=== PATIENT | female | born 1930 | race Caucasian/White ===

== ENCOUNTER 2016-08-16 10:58 | Inpatient (IN) | payer MEDICARE, BC ==
[2016-08-16] MEDS ORDERED: NS 0.9% 1000 ML* 1,000 ML IV ONE (11:28)
[2016-08-16 12:09] LABS: Hematocrit 51 % (35-47); Hemoglobin 16.3 g/dl (12.0-16.0); Mean Corpuscular HGB Conc 32 g/dl (31-36); Mean Corpuscular Hemoglobin 29 pg (27-31); Mean Corpuscular Volume 90 fL (80-97); Mean Platelet Volume 10 um3 (7.4-10.4); Red Blood Count 5.63 10^6/ul (4.0-5.4); Red Cell Distribution Width 14 % (10.5-15); White Blood Count 15.5 10^3/ul (3.5-10.8)
[2016-08-16 12:25] LABS: Albumin 3.8 g/dL (3.2-5.2); BUN/Creatinine Ratio 17.4 (8-20); C Reactive Protein 27.93 mg/L (< 5.00); Calcium 9.1 mg/dL (8.6-10.3); EGFR African American 74.6 (>60); Globulin 3.9 g/dL (2-4); Total Bilirubin 0.7 mg/dL (0.2-1.0); Total Protein 7.7 g/dL (6.4-8.9)
[2016-08-16 12:29] LABS: Potassium 4.1 mmol/L (3.5-5.0)
[2016-08-16] MEDS ORDERED: Ondansetron INJ* 2 MG/ML VIAL IV ONE (14:23)
--- NOTE | 2016-08-16 14:25 | ED ---
Abdominal Pain/Female - HPI Summary HPI Summary: Pt presents to the ED through ambulatory triage. Pt is an 86 yo female with report of baseline confusion, hypertension, and elevated cholesterol. Pt was sent from [place] with diarrhea. Pt with limited ability to assist with hx. Pt denies fevers. Reports nausea, no vomiting. Pt denies rash. Pt denies fevers, chills - pt is inconsistent. Hx in part from RN at bedside who spoke with pt' s son - since left ED No known h/o abx - History of Current Complaint Chief Complaint: EDNauseaVomitDiarrh Stated Complaint: DIARRHEA Time Seen by Provider: 08/16/16 14:14 Hx From Patient Unobtainable Due To: Dementia ?: No Pain Intensity: 0 Radiates: No Alleviating Factor(s): Other: - diarrhea Associated Signs and Symptoms: Positive: Negative Allergies/Adverse Reactions: Allergies Allergy/AdvReac Type Severity Reaction Status Date / Time Iodinated Contrast Media Allergy Unknown Unknown Verified 03/02/16 04:20 [IV CONTRAST DYE] Reaction Details Morphine Allergy Unknown Unknown Verified 03/02/16 04:20 Reaction Details Home Medications: Home Medications Acetaminophen [Acetaminophen Extra Stren] 500 mg PO QID PRN 08/16/16 [History Confirmed 08/16/16] Aspirin EC Low Dose* [Ecotrin EC Low Dose*] 81 mg PO DAILY 08/16/16 [History Confirmed 08/16/16] Donepezil TAB* [Aricept TAB*] 10 mg PO DAILY 08/16/16 [History Confirmed ] Escitalopram (NF) [Lexapro (NF)] 5 mg PO DAILY 08/16/16 [History Confirmed 08/16] LORazepam TAB(*) [Ativan TAB(*)] 0.5 mg PO DAILY MDD 0.5 mg 08/16/16 [History Confirmed 08/16/16] Memantine HCl [Namenda XR-] 21 mg PO QAM 08/16/16 [History Confirmed 08/16/16] Metoprolol Succinate XL TAB* [Toprol XL TAB*] 50 mg PO DAILY 08/16/16 [History Confirmed 08/16/16] Vitamin B Complex CAP* [B Complex CAP*] 1 cap PO DAILY 08/16/16 [History Confirmed 08/16/16] traZODone TAB* [Desyrel TAB*] 50 mg PO BEDTIME 08/16/16 [History Confirmed 08/16] PMH/Surg Hx/FS Hx/Imm Hx Previously Healthy: Yes Cardiovascular History: Reports: Hx Coronary Artery Disease, Hx Hypercholesterolemia Neurological History: Reports: Hx Dementia Psychiatric History: Denies: Hx Eating Disorder, Hx of Violent Episodes Against Others - Cancer History Cancer Type, Location and Year: 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 2004 BOWEL RESECTION - Immunization History Date of Tetanus Vaccine: unk Date of Influenza Vaccine: unk Infectious Disease History: No Infectious Disease History: Denies: Traveled Outside the [place] in Last 30 Days - Family History Known Family History: Positive: Hypertension - Social History Alcohol Use: None Hx Substance Use: No Substance Use Type: Reports: None Hx Tobacco Use: No Smoking Status (MU): Never Smoked Tobacco Review of Systems Constitutional: Negative Eyes: Negative ENT: Negative Cardiovascular: Negative Negative: Chest Pain Respiratory: Negative Negative: Shortness Of Breath Gastrointestinal: Negative Positive: Abdominal Pain, Diarrhea, Nausea. Negative: Vomiting Genitourinary: Negative Skin: Negative Neurological: Negative Psychological: Normal All Other Systems Reviewed And Are Negative: Yes Physical Exam Triage Information Reviewed: Yes Vital Signs On Initial Exam: Initial Vitals Temp Pulse Resp BP Pulse Ox 97.8 F 95 16 131/83 98 08/16/16 11:19 08/16/16 11:19 08/16/16 11:19 08/16/16 11:19 08/16/16 11:19 Vital Signs Reviewed: Yes Completion Of Physical Exam Limited Due To: Dementia Appearance: Positive: Well-Appearing, No Pain Distress Skin: Positive: Warm, Skin Color Reflects Adequate Perfusion, Dry Head/Face: Positive: Normal Head/Face Inspection Eyes: Positive: Normal, EOMI, ARTIE ENT: Positive: Other - lips dry. Negative: Nasal congestion, TMs normal Respiratory/Lung Sounds: Positive: Clear to Auscultation, Breath Sounds Present Cardiovascular: Positive: Normal, RRR. Negative: Murmur Abdomen Description: Negative: Nontender - + TTP lower quadrants b/l No guarding + BS Bowel Sounds: Positive: Hypoactive Musculoskeletal: Positive: Normal Neurological: Negative: Alert, Oriented to Person Place, Time, Receptive Aphasia , Facial Droop, Slurred Speech - Pt with confusion - baseline per RN per pt's son Psychiatric: Positive: Normal AVPU Assessment: Alert - Oral Coma Scale Best Eye Response: 4 - Spontaneous Best Motor Response: 6 - Obeys Commands Best Verbal Response: 5 - Oriented Coma Scale Total: 14 Diagnostics - Vital Signs Vital Signs Temp Pulse Resp BP Pulse Ox 08/16/16 13:42 65 16 141/59 95 08/16/16 11:19 97.8 F 95 16 131/83 98 - Laboratory Lab Results: Lab Results 08/16/16 08/16/16 08/16/16 Range/Units 11:57 11:57 11:57 WBC 15.5 H (3.5-10.8) 10^3/ul RBC 5.63 H (4.0-5.4) 10^6/ul Hgb 16.3 H (12.0-16.0) g/dl Hct 51 H (35-47) % MCV 90 (80-97) fL MCH 29 (27-31) pg MCHC 32 (31-36) g/dl RDW 14 (10.5-15) % Plt Count 202 (150-450) 10^3/ul MPV 10 (7.4-10.4) um3 Neut % (Auto) 93.7 H (38-83) % Lymph % (Auto) 3.1 L (25-47) % [place] % (Auto) 3.0 (1-9) % Eos % (Auto) 0.1 (0-6) % Baso % (Auto) 0.1 (0-2) % Absolute Neuts (auto) 14.5 H (1.5-7.7) 10^3/ul Absolute Lymphs (auto) 0.5 L (1.0-4.8) 10^3/ul Absolute Monos (auto) 0.5 (0-0.8) 10^3/ul Absolute Eos (auto) 0 (0-0.6) 10^3/ul Absolute Basos (auto) 0 (0-0.2) 10^3/ul Absolute Nucleated RBC 0 10^3/ul Nucleated RBC % 0 INR (Anticoag Therapy) 1.01 (0.89-1.11) APTT 33.0 (26.0-36.3) seconds Sodium 138 (133-145) mmol/L Potassium 4.1 (3.5-5.0) mmol/L Chloride 105 (101-111) mmol/L Carbon Dioxide 26 (22-32) mmol/L Anion Gap 7 (2-11) mmol/L BUN 16 (6-24) mg/dL Creatinine 0.92 (0.51-0.95) mg/dL Est GFR ( Amer) 74.6 (>60) Est GFR (Non-Af Amer) 58.0 (>60) BUN/Creatinine Ratio 17.4 (8-20) Glucose 123 H (70-100) mg/dL Lactic Acid (0.5-2.0) mmol/L Calcium 9.1 (8.6-10.3) mg/dL Total Bilirubin 0.70 (0.2-1.0) mg/dL AST 22 (13-39) U/L ALT 20 (7-52) U/L Alkaline Phosphatase 95 (34-104) U/L C-Reactive Protein 27.93 H (< 5.00) mg/L Total Protein 7.7 (6.4-8.9) g/dL Albumin 3.8 (3.2-5.2) g/dL Globulin 3.9 (2-4) g/dL Albumin/Globulin Ratio 1.0 (1-3) Lipase 25 (11.0-82.0) U/L 08/16/16 Range/Units 11:57 WBC (3.5-10.8) 10^3/ul RBC (4.0-5.4) 10^6/ul Hgb (12.0-16.0) g/dl Hct (35-47) % MCV (80-97) fL MCH (27-31) pg MCHC (31-36) g/dl RDW (10.5-15) % Plt Count (150-450) 10^3/ul MPV (7.4-10.4) um3 Neut % (Auto) (38-83) % Lymph % (Auto) (25-47) % [place] % (Auto) (1-9) % Eos % (Auto) (0-6) % Baso % (Auto) (0-2) % Absolute Neuts (auto) (1.5-7.7) 10^3/ul Absolute Lymphs (auto) (1.0-4.8) 10^3/ul Absolute Monos (auto) (0-0.8) 10^3/ul Absolute Eos (auto) (0-0.6) 10^3/ul Absolute Basos (auto) (0-0.2) 10^3/ul Absolute Nucleated RBC 10^3/ul Nucleated RBC % INR (Anticoag Therapy) (0.89-1.11) APTT (26.0-36.3) seconds Sodium (133-145) mmol/L Potassium (3.5-5.0) mmol/L Chloride (101-111) mmol/L Carbon Dioxide (22-32) mmol/L Anion Gap (2-11) mmol/L BUN (6-24) mg/dL Creatinine (0.51-0.95) mg/dL Est GFR ( Amer) (>60) Est GFR (Non-Af Amer) (>60) BUN/Creatinine Ratio (8-20) Glucose (70-100) mg/dL Lactic Acid 1.5 (0.5-2.0) mmol/L Calcium (8.6-10.3) mg/dL Total Bilirubin (0.2-1.0) mg/dL AST (13-39) U/L ALT (7-52) U/L Alkaline Phosphatase (34-104) U/L C-Reactive Protein (< 5.00) mg/L Total Protein (6.4-8.9) g/dL Albumin (3.2-5.2) g/dL Globulin (2-4) g/dL Albumin/Globulin Ratio (1-3) Lipase (11.0-82.0) U/L Result Diagrams: 08/16/16 11:57 08/16/16 11:57 Lab Statement: Any lab studies that have been ordered have been reviewed, and results considered in the medical decision making process. - CT No standard instances CT Interpretation: Positive (See Comments) - IMPRESSION: 1. LARGE ANTERIOR ABDOMINAL WALL HERNIA CONTAINING THE MAJORITY OF THE TRANSVERSE COLON WITHOUT EVIDENCE FOR OBSTRUCTION. 2. 1 CM NODULE WITHIN THE RIGHT BREAST, RECOMMEND FOLLOW-UP OUTPATIENT MAMMOGRAMS. 3. HEPATOMEGALY AND SEVERAL HEPATIC CYSTS, UNCHANGED. 4. STATUS POST CHOLECYSTECTOMY. 5. 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 <Electronically signed by Kris Cervantes MD in OV> 08/16/16 1727 Re-Evaluation - Re-Evaluation First Eval Re-Evaluation Time: 16:45 Change: Improved - drinking contrast, no pain Second Eval Re-Evaluation Time: 18:02 Comment: REviewed cT and labs with pt and daughter. Pt has had 5 BM in ED - loose. will d/c hospitalist regarding admission / obv Abdominal Pain Fem Course/Dx - Course Course Of Treatment: Pt presents with report of diarrhea - pt noted to have abdominal discomfort on exam. Pt with elevated wbc. Will check CT. straight cath urine. If abx, will draw blood cx. RN updated to plan - Diagnoses Provider Diagnoses: Diarrhea, Leukocytosis - Provider Notifications Discussed Care Of Patient With: Dr. Cisse - will admit OBV Time Discussed With Above Provider: 18:00 Instructed by Provider To: Admit As Observation Discharge - Discharge Plan Condition: Stable Disposition: ADMITTED TO [facility]
[2016-08-16 15:25] LABS: Urine Bilirubin Negative (Negative); Urine Glucose Negative (Negative); Urine Nitrite Negative (Negative)
--- NOTE | 2016-08-16 17:30 | RAD ---
INDICATION: Diarrhea and bilateral lower abdominal pain. COMPARISON: Comparison is made with a prior CT of the abdomen from December 30, 2004. TECHNIQUE: A CT scan of the abdomen and pelvis was performed without intravenous and with oral contrast. Contiguous axial sections were obtained from the lung bases through the symphysis pubis. Images were reconstructed in the coronal and sagittal planes. FINDINGS: There is mild dependent bilateral lower lobe subsegmental atelectasis. No pleural effusion is present. There is a nodule in the medial right breast measuring 1 cm in size. The liver is moderately enlarged and unchanged from the prior exam. There are several small fluid density lesions. The largest measures 1.6 cm in size present within the liver. These have increased slightly in size from the prior study and are most consistent with cysts. The patient is status post cholecystectomy. The spleen is within normal limits in size. The pancreas appears to be within normal limits in size. No ductal distention is seen. There is a 2.9 x 1.4 cm left adrenal nodule which has increased in size from the prior exam although likely represents an adenoma. The right adrenal gland appears to be within normal limits. The kidneys are normal in size. No renal calculi or hydronephrosis is seen. The aorta is mildly ectatic with moderate to severe calcific plaque present. No significant enlarged retroperitoneal lymph nodes are seen. The stomach, small and large bowel appear nondistended. The appendix is not visualized. There is a suture line present along the cecum. There is a large anterior wall abdominal hernia centered just to the right of the midline containing the majority of the transverse colon and a portion of the ascending colon. The colon appears nondistended without evidence for bowel wall thickening. This is new from the prior study. There is no evidence for diverticulitis or colitis. The uterus is either very small in size or absent. No free intraperitoneal air or fluid is seen. No significant focal osseous abnormality is seen. IMPRESSION: 1. LARGE ANTERIOR ABDOMINAL WALL HERNIA CONTAINING THE MAJORITY OF THE TRANSVERSE COLON WITHOUT EVIDENCE FOR OBSTRUCTION. 2. 1 CM NODULE WITHIN THE RIGHT BREAST, RECOMMEND FOLLOW-UP OUTPATIENT MAMMOGRAMS. 3. HEPATOMEGALY AND SEVERAL HEPATIC CYSTS, UNCHANGED. 4. STATUS POST CHOLECYSTECTOMY. 5. 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
[2016-08-16] MEDS ORDERED: Acetaminophen TAB* 325 MG PO PRN (18:52)
[2016-08-16] MEDS ORDERED: Ondansetron INJ* 2 MG/ML VIAL IV PRN (18:52)
[2016-08-16] MEDS: traZODone TAB* 50 MG TAB PO SCH (20:37)
[2016-08-16] MEDS: Enoxaparin(*) 40 MG/0.4 ML SYR SUBCUT SCH (20:39)
--- NOTE | 2016-08-17 00:34 | HP ---
MEDICINE HISTORY AND PHYSICAL: DATE OF ADMISSION: 08/16/16 ATTENDING PHYSICIAN: Gerald Cisse MD *(dictated by Axel Fierro NP) PRIMARY CARE PHYSICIAN: Lorin Perkins MD. CHIEF COMPLAINT: Nausea, vomiting and diarrhea. HISTORY OF PRESENT ILLNESS: Ms. Rossy Brody is a pleasant 86-year-old female who resides at [facility], who presented to the ED today for evaluation of nausea, vomiting, and diarrhea that started in the middle of the night as per the [facility] staff. The patient has a history of dementia and memory loss, so she is unable to provide much of the history. Her daughter, Jeannine Brody, is in the room and she assisted in providing collateral information. Per the daughter from report from [facility], the patient started with diarrhea at middle of the night, there are other residents who have had similar symptoms and it was reported that there is a stomach bug going around the facility. The patient has had frequent loose stools while here in the ED and a stool sample has been sent for testing. Since 3 o'clock, the daughter reports that the patient still had frequent loose stools, although she has denied nausea after receiving Zofran. When asked, the patient denies any recent fever or chills and she states that her abdomen does not hurt. She denies any chest pain or trouble breathing or dysuria. PAST MEDICAL HISTORY: Significant for: 1. Hypertension. 2. Dyslipidemia. 3. Dementia. 4. History of uterine cancer, status post chemo. 5. Hiatal hernia. 6. Diverticulitis. PAST SURGICAL HISTORY: 1. Cholecystectomy. 2. Laparotomy with resection of the rectosigmoid and placement of a transverse colostomy in 2004. The patient had a reversal of the colostomy in 2005. 3. Total abdominal hysterectomy and bilateral salpingo-oophorectomy in 1999 for stage I uterine cancer. 4. History of bladder inflammation with a colovaginal fistula. Please note that these histories were obtained from previous medical records and the patient's daughter. HOME MEDICATIONS: 1. Trazodone 50 mg at bedtime. 2. Vitamin B complex 1 capsule daily. 3. Metoprolol succinate XL 50 mg daily. 4. Memantine XR 21 mg q.a.m. 5. Lorazepam 0.5 mg daily. 6. Lexapro 5 mg daily. 7. Omeprazole 10 mg daily. 8. Aspirin 81 mg daily. 9. Ascorbic acid 500 mg daily. 10. Acetaminophen Extra Strength 500 mg q.i.d. p.r.n. ALLERGIES: IODINATED CONTRAST MEDIA and MORPHINE. FAMILY HISTORY: The patient's daughter reports heart disease in multiple family members on her mother's side. SOCIAL HISTORY: The patient is a former smoker, quitting approximately 50 years ago and then restarting around age 71, she has since quit. She denies alcohol or recreational drug use. The patient lives at [facility] in the assisted living section. She has 3 children, 2 daughters and 1 son, her children Jeannine Brody and Vance Brody, are each surrogate decision makers in the event of an emergency. REVIEW OF SYSTEMS: I attempted to obtain a 14-point review of systems, the patient has short-term memory loss and dementia and is unable to provide a full review of systems. All pertinent positives were included in the HPI. PHYSICAL EXAMINATION GENERAL: Ms. Brody is an 86-year-old female, well developed, well nourished, who is lying in the ED stretcher, in no acute distress. VITAL SIGNS: Temperature 98.1, heart rate 76, respiratory rate 18, blood pressure 124/60, O2 saturation 94% on room air. HEENT: Head is atraumatic, normocephalic. Face is symmetrical. Pupils are equal, round and reactive to light. Extraocular movements are intact. External ears and nose are normal. Oral mucosa appears somewhat dry. NECK: Supple. No lymphadenopathy noted. RESPIRATORY: Lungs are clear to auscultation. There is no accessory muscle use. CARDIAC: S1, S2 heart sounds. Regular rate and rhythm. No murmurs, rubs, or gallops. There is no lower extremity edema. The patient has 2+ distal pulses. ABDOMEN: Soft, nontender, nondistended. There is no rebound, tenderness or guarding. Bowel sounds are present in all 4 quadrants. MUSCULOSKELETAL: There is no clubbing or cyanosis. The patient has full range of motion. SKIN: Limited exam, but appears grossly intact. NEUROLOGIC: No focal neurological deficits. The patient is able to move all extremities. PSYCH: She is alert. She is oriented to self. She has some confusion which is apparently her baseline per her daughter. LABORATORY DATA AND DIAGNOSTIC STUDIES: CBC: WBC 15.5, hemoglobin 16.3, hematocrit 51. INR 1.01. CMP: Sodium 138, potassium 4.1, chloride 105, carbon dioxide 26, BUN 16, creatinine 0.92, glucose 123. Lactic acid 1.5, calcium 9.1, total bilirubin 0.7, AST 22, ALT 20, alk phos 95, CRP 27.9, prealbumin 3.8, lipase 25. Urinalysis is negative. CT of the abdomen and pelvis. Impression: 1. Large anterior abdominal wall hernia containing the majority of the transverse colon without evidence for obstruction. 2. A 1 cm nodule within the right breast, recommend followup outpatient mammograms. 3. Hepatomegaly and several hepatic cysts, unchanged. 4. Status post cholecystectomy. 5. Left adrenal nodule most consistent with an adenoma. ASSESSMENT AND PLAN: Ms. Brody is an 86-year-old female with a past medical history of hypertension, hiatal hernia, previous abdominal surgery who presents today with nausea, vomiting and diarrhea that is likely secondary to gastroenteritis. We will admit her under OBV status to medicine floor. Plan is as follows: 1. Nausea, vomiting, diarrhea, suspect viral gastroenteritis. Admitted to Medicine under OBV status. We will hydrate the patient with Lactated Ringer's. Stool cultures and fecal lactoferrin was collected and sent into the ER and we will await these results. The patient's PCR for C. diff is negative. Her stool occult is also negative. She denies abdominal pain. At this time, we will maintain her on clear liquids. Recheck CBC and BMP in the morning to monitor electrolytes and leukocytosis. 2. Leukocytosis. I suspect this is secondary to the patient's gastroenteritis. Continue to trend. She does have a mildly elevated CRP at 27. 3. Hypertension. Continue metoprolol succinate XL with hold parameters. 4. History of dementia. Continue home Namenda, Aricept. 5. FEN. The patient is ordered clear liquids and IV fluids. 6. DVT prophylaxis. She is at high risk. She is ordered subcu Lovenox and SCD 's. 7. Code status. She is a full code. a MOLST form but this was discussed. TIME SPENT: Time spent on this admission was approximately 60 minutes, more than half that time was spent [id number] with the patient and her family obtaining history and physical, performing physical examination, and reviewing the plan of care. Plan of care was also reviewed with my attending, Dr. Cisse , who is in agreement. AXEL FIERRO NP CC: Lorin Perkins MD* [id number]/[facility] #: [id number] MTDD
[2016-08-17 05:33] LABS: Hematocrit 44 % (35-47); Hemoglobin 14.2 g/dl (12.0-16.0); Mean Corpuscular HGB Conc 33 g/dl (31-36); Mean Corpuscular Hemoglobin 30 pg (27-31); Mean Corpuscular Volume 90 fL (80-97); Mean Platelet Volume 10 um3 (7.4-10.4); Red Blood Count 4.82 10^6/ul (4.0-5.4); Red Cell Distribution Width 14 % (10.5-15); White Blood Count 7.8 10^3/ul (3.5-10.8)
[2016-08-17 05:46] LABS: BUN/Creatinine Ratio 13.8 (8-20); Calcium 8.4 mg/dL (8.6-10.3); EGFR African American 79.6 (>60); EGFR Non-African American 61.9 (>60); Potassium 3.6 mmol/L (3.5-5.0)
[2016-08-17] MEDS: Donepezil TAB* 5 MG PO SCH ×2 (10:22→10:30)
[2016-08-17] MEDS: Aspirin EC Low Dose* 81 MG TAB.EC PO SCH ×2 (10:23→10:30)
[2016-08-17] MEDS: Memantine XR * 7 MG CAP.XR PO SCH ×2 (10:23→10:30)
[2016-08-17] MEDS: LORazepam TAB(*) 0.5 MG PO SCH ×2 (10:23→10:30)
[2016-08-17] MEDS: Citalopram TAB* 10 MG PO SCH ×2 (10:23→10:30)
[2016-08-17] MEDS: Metoprolol Succinate XL TAB* 50 MG PO SCH (10:23)
--- NOTE | 2016-08-17 13:07 | PN ---
Subjective Date of Service: 08/17/16 Interval History: Patient seen and examined at bedside. Pt states that she didn't sleep well, and she doesn't want to take her medications. Denies fever, chills, shortness of breath, chest discomfort, vomiting or diarrhea. [facility] staff report that Pt had an episode of diarrhea earlier today. Pt continues to have nausea. Pt doesn't want to eat, she is "ready to ". Pt denies suicidal ideation, states that she has lived long enough. Family History: Unchanged from Admission Social History: Unchanged from Admission Past Medical History: Unchanged from Admission Objective Active Medications: Acetaminophen (Tylenol Tab*) 650 mg PO Q4H PRN Reason: FEVER/PAIN Aspirin (Aspirin Ec Low Dose*) 81 mg PO DAILY BRIGIDO Citalopram Hydrobromide (Celexa Tab*) 10 mg PO DAILY BR[facility]O Donepezil HCl (Aricept Tab*) 10 mg PO DAILY [facility]O Enoxaparin Sodium (Lovenox(*)) 40 mg SUBCUT Q24H BRIGIDO Lorazepam (Ativan Tab(*)) 0.5 mg PO DAILY [facility]O Memantine (Namenda Xr *) 21 mg PO QAM [facility] Metoprolol Succinate (Toprol Xl Tab*) 50 mg PO DAILY [facility]O Ondansetron HCl (Zofran Inj*) 4 mg IV Q6H PRN Reason: NAUSEA Trazodone HCl (Desyrel Tab*) 50 mg PO BEDTIME [facility] Vital Signs 08/16/16 08/16/16 08/16/16 19:19 19:20 20:15 Temperature 99.3 F Pulse Rate 73 74 Respiratory 18 Rate Blood Pressure 141/75 126/75 (mmHg) O2 Sat by Pulse 94 94 Oximetry 08/16/16 08/16/16 08/17/16 23:13 23:40 06:10 Temperature 98.0 F 98.1 F Pulse Rate 87 82 Respiratory 18 16 16 Rate Blood Pressure 147/63 138/62 (mmHg) O2 Sat by Pulse 93 92 Oximetry Oxygen Devices in Use Now: None Appearance: NAD, laying in bed. Eyes: No Scleral Icterus, PERRLA Neck: NL Appearance and Movements; NL JVP, Trachea Midline Respiratory: Symmetrical Chest Expansion and Respiratory Effort, Clear to Auscultation Cardiovascular: NL Sounds; No Murmurs; No JVD, RRR Abdominal: NL Sounds; No Tenderness; No Distention - Bowel sounds present Extremities: No Edema Skin: No Rash or Ulcers Neurological: NL Muscle Strength and Tone, - - Oriented to Person Lines/Tubes/Other Access: Clean, Dry and Intact Peripheral IV - site benign Nutrition: Taking PO's Result Diagrams: 08/17/16 04:59 08/17/16 04:59 Additional Lab and Data: Assess/Plan/Problems-Billing Assessment: Ms. Brody is an 86 yo female with PMH significant for HTN, hiatal hernia, previous abdominal surgery who presented to the emergency room with N/V/D secondary to gastroenteritis. - Patient Problems (1) Nausea, vomiting, and diarrhea Code(s): R11.2 - NAUSEA WITH VOMITING, UNSPECIFIED; R19.7 - DIARRHEA, UNSPECIFIED SNOMED Code(s): 6456907 Comment: - Continues to have nausea and some diarrhea - Continue to encourage liquids - Suspect viral gastroenteritis (2) Leukocytosis Code(s): D72.829 - ELEVATED WHITE BLOOD CELL COUNT, UNSPECIFIED SNOMED Code(s) : 182700802 Comment: - Resolved - Suspect related to gastroenteritis (3) HTN (hypertension) Code(s): I10 - ESSENTIAL (PRIMARY) HYPERTENSION SNOMED Code(s): 27395839 Comment: - SBP 120-140's - Continue Metoprolol Succinate (4) Dementia Code(s): F03.90 - UNSPECIFIED DEMENTIA WITHOUT BEHAVIORAL DISTURBANCE SNOMED Code(s): 18116147 Comment: Continue Namenda and Aricept (5) DVT prophylaxis Code(s): MDP4435 - SNOMED Code(s): 820164053 Comment: Continue Lovenox and SCDs (6) Full code status Code(s): Z78.9 - OTHER SPECIFIED HEALTH STATUS SNOMED Code(s): 091060018 Status and Disposition: OBV to Inpatient. Discharge back to [facility] when medically stable.
[2016-08-17] MEDS: traZODone TAB* 50 MG TAB PO SCH (20:12)
[2016-08-17] MEDS: Enoxaparin(*) 40 MG/0.4 ML SYR SUBCUT SCH (20:13)
[2016-08-18] MEDS: LORazepam TAB(*) 0.5 MG PO SCH (08:08)
--- NOTE | 2016-08-18 10:15 | PN ---
Subjective Date of Service: 08/18/16 Interval History: Patient seen and examined at bedside. Pt states that she wants to go home. Denies fever, chills, shortness of breath, chest discomfort, N/V/D. Per NSG staff Pt has not had a bowel movement today. Pt is anxious about going home, "needs to get home to the children". Family History: Unchanged from Admission Social History: Unchanged from Admission Past Medical History: Unchanged from Admission Objective Active Medications: Acetaminophen (Tylenol Tab*) 650 mg PO Q4H PRN Reason: FEVER/PAIN Aspirin (Aspirin Ec Low Dose*) 81 mg PO DAILY BRIGIDO Citalopram Hydrobromide (Celexa Tab*) 10 mg PO DAILY BRIGIDO Donepezil HCl (Aricept Tab*) 10 mg PO DAILY BRIGIDO Enoxaparin Sodium (Lovenox(*)) 40 mg SUBCUT Q24H BRIGIDO Lactated Ringer's (Lactated Ringers 1000 Ml Bag*) 1,000 mls @ 75 mls/hr IV PER RATE BRIGIDO Lorazepam (Ativan Tab(*)) 0.5 mg PO DAILY BRIGIDO Memantine (Namenda Xr *) 21 mg PO QAM BRIGIDO Metoprolol Succinate (Toprol Xl Tab*) 50 mg PO DAILY BRIGIDO Ondansetron HCl (Zofran Inj*) 4 mg IV Q6H PRN Reason: NAUSEA Trazodone HCl (Desyrel Tab*) 50 mg PO BEDTIME BRIGIDO Vital Signs 08/17/16 08/17/16 08/18/16 20:00 23:36 08:08 Temperature 97.1 F Pulse Rate 89 Respiratory 16 20 16 Rate Blood Pressure 124/84 (mmHg) O2 Sat by Pulse 96 Oximetry Oxygen Devices in Use Now: None Appearance: NAD, sitting up in a chair. Eyes: No Scleral Icterus, PERRLA Ears/Nose/Mouth/Throat: NL Teeth, Lips, Gums, Mucous Membranes Moist Neck: NL Appearance and Movements; NL JVP, Trachea Midline Respiratory: Symmetrical Chest Expansion and Respiratory Effort, Clear to Auscultation Cardiovascular: NL Sounds; No Murmurs; No JVD, RRR Abdominal: NL Sounds; No Tenderness; No Distention Extremities: No Edema Skin: No Rash or Ulcers Neurological: NL Muscle Strength and Tone, - - Alert and Oriented to Person and Place, confused Nutrition: Taking PO's Result Diagrams: 08/17/16 04:59 08/17/16 04:59 Additional Lab and Data: Assess/Plan/Problems-Billing Assessment: Ms. Brody is an 86 yo female with PMH significant for HTN, hiatal hernia, previous abdominal surgery who presented to the emergency room with N/V/D secondary to gastroenteritis. - Patient Problems (1) Nausea, vomiting, and diarrhea Code(s): R11.2 - NAUSEA WITH VOMITING, UNSPECIFIED; R19.7 - DIARRHEA, UNSPECIFIED SNOMED Code(s): 0105028 Comment: - Nausea and diarrhea resolved - Continue to encourage liquids - Suspect viral gastroenteritis (2) Leukocytosis Code(s): D72.829 - ELEVATED WHITE BLOOD CELL COUNT, UNSPECIFIED SNOMED Code(s) : 917378929 Comment: - Resolved - Suspect related to gastroenteritis (3) HTN (hypertension) Code(s): I10 - ESSENTIAL (PRIMARY) HYPERTENSION SNOMED Code(s): 93369061 Comment: - SBP 120-140's - Continue Metoprolol Succinate (4) Dementia Code(s): F03.90 - UNSPECIFIED DEMENTIA WITHOUT BEHAVIORAL DISTURBANCE SNOMED Code(s): 86985761 Comment: Continue Namenda and Aricept (5) DVT prophylaxis Code(s): VHW5611 - SNOMED Code(s): 758163217 (6) Full code status Code(s): Z78.9 - OTHER SPECIFIED HEALTH STATUS SNOMED Code(s): 689343835 Status and Disposition: Inpatient. Stable for discharge back to [facility] today.
[2016-08-18 11:21] VITALS: BP 165/76
[2016-08-18] MEDS: Donepezil TAB* 5 MG PO SCH (11:28)
[2016-08-18] MEDS: Metoprolol Succinate XL TAB* 50 MG PO SCH (11:28)
[2016-08-18] MEDS: Aspirin EC Low Dose* 81 MG TAB.EC PO SCH (11:29)
[2016-08-18] MEDS: Citalopram TAB* 10 MG PO SCH (11:29)
[2016-08-18] MEDS: Memantine XR * 7 MG CAP.XR PO SCH (11:29)
--- NOTE | 2016-08-19 11:49 | DS ---
DISCHARGE SUMMARY: DATE OF ADMISSION: 08/16/16 DATE OF DISCHARGE: 08/18/16 ATTENDING PHYSICIAN: Dr. Gerald Cisse *(dictated by Lucila Sun NP). PRIMARY CARE PROVIDER: Dr. Lorin Perkins. PRIMARY DIAGNOSIS: Viral gastroenteritis. SECONDARY DIAGNOSES: 1. Hypertension. 2. Dementia. STUDIES WHILE IN THE HOSPITAL: Abdomen and pelvis CT on 08/16/16. Radiologist' s impression: Large anterior abdominal wall hernia containing the majority of the transverse colon without evidence of obstruction. A 1 cm nodule within the right breast, recommend followup outpatient mammograms. Hepatomegaly and several hepatic cysts, unchanged. Status post cholecystectomy. Left adrenal nodule, most consistent with an adenoma. DISCHARGE MEDICATIONS: Continued home medications: 1. Vitamin C 500 mg oral daily. 2. Trazodone 50 mg oral daily at bedtime. 3. Vitamin B complex one capsule oral daily. 4. Metoprolol succinate XL 50 mg oral daily. 5. Namenda XR 21 mg oral daily. 6. Lorazepam 0.5 mg oral daily. 7. Lexapro 5 mg oral daily. 8. Aricept 10 mg oral daily. 9. Aspirin 81 mg oral daily. 10. Acetaminophen 500 mg oral 4 times daily as needed for fever or pain. HISTORY OF PRESENT ILLNESS/HOSPITAL COURSE: Ms. Brody is an 86-year-old female with past medical history significant for hypertension, hyperlipidemia, and dementia, who resides at [facility], who presented to the emergency room for evaluation of nausea, vomiting, and diarrhea that started the night prior. According to report from [facility], the patient started having diarrhea in the night. There were several other residents at the facility with similar symptoms and it was reported there was a stomach bug going around. The patient had frequent loose stools while in the emergency room. Based off of concern for the patient's continued diarrhea, the patient was brought to the emergency room for further evaluation of her symptoms. While in the emergency room, the patient continued to have frequent loose stools and a stool sample was sent. The patient denied any fever, chills. The patient did complain of abdominal pain. While in the ER, the patient had a CT scan showing a large anterior wall hernia containing the majority of the transverse colon without evidence of obstruction. They had a PCR for C. diff that was negative and stool for Hemoccult that was also negative. Based off of concern for the patient's continued nausea, vomiting, and diarrhea, hospitalists were asked to evaluate the patient for admission. While in the hospital, the patient's diarrhea subsided. Her stool sample was negative for any enteric pathogens. It was also negative for Shiga toxin 1 and 2, negative for Giardia, and cryptosporidium. It was positive for fecal lactoferrin. The patient initially had leukocytosis when she presented, but that resolved and the patient had a negative urinalysis. The patient is drinking some and eating small amounts of her meals, stating that she just was not very hungry. After the patient's diarrhea resolved, it was felt that she was ready for discharge back to [facility]. Ms. Brody is stable for discharge back to [facility] today. Vital signs are as follows: Temperature 97.6, heart rate 80, respiratory rate 18, O2 sat 97% on room air, blood pressure 165/76. DISCHARGE PLAN: Ms. Brody will be discharged to [facility]. ACTIVITY: As tolerated. DIET: She should be on a regular diet. I recommend the patient to eat light over the next few days while her stomach is still feeling off. The patient should follow up with her primary care provider, Dr. Lorin Perkins. As far as the patient's viral gastroenteritis, she has been encouraged to keep hydrated and drink. The patient is able to return to her previous level of care. The patient had an incidental finding of a 1 cm nodule within the right breast. She should have a followup outpatient mammogram. This is a summarized report of a complex medical history and hospital stay. For further details, please see the entire medical record. TIME SPENT: Time for this discharge was 50 minutes and 25 minutes were spent face- to-face with the patient discussing discharge plans and instructions. CONDITION ON DISCHARGE: Stable. Reviewed by TIFFANIE OWENS 08/31/16 1452 CC: Dr. Lorin Perkins * [id number]/[facility] #: [id number] MECHE
== END 2016-08-18 13:55 | disposition home or self-care (01) | DRG 392 ==
LOC: ED 10:58 → MED 18:04 → OBSVTOIN 08-17 13:12
PROVIDERS: ADMIT Hospitalist; ATTEND Hospitalist
DX: A08.4 Viral intestinal infection, unspecified (principal); F03.90 Unspecified dementia, unspecified severity, without behavioral disturbance, psychotic disturbance, mood disturbance, and anxiety; K76.89 Other specified diseases of liver; I10 Essential (primary) hypertension; K43.9 Ventral hernia without obstruction or gangrene; N63 Unspecified lump in breast; D35.02 Benign neoplasm of left adrenal gland; E78.5 Hyperlipidemia, unspecified; I25.10 Atherosclerotic heart disease of native coronary artery without angina pectoris; D72.829 Elevated white blood cell count, unspecified; Z88.5 Allergy status to narcotic agent; Z91.041 Radiographic dye allergy status; Z82.49 Family history of ischemic heart disease and other diseases of the circulatory system; Z85.42 Personal history of malignant neoplasm of other parts of uterus; Z90.710 Acquired absence of both cervix and uterus; Z87.891 Personal history of nicotine dependence; Z79.82 Long term (current) use of aspirin
CPT/HCPCS: 36415; 74176; 80048; 80053; 81003; 82272; 83605; 83630; 83690; 85025; 85610; 85730; 86140; 87045; 87046; 87328; 87329; 87493; 87899; A9270-GY; G0378; J1650; J2405

== ENCOUNTER 2016-08-24 08:27 | Inpatient (IN) | payer MEDICARE, BC ==
--- NOTE | 2016-08-24 08:57 | ED ---
GI/ HPI - HPI Summary HPI Summary: Patient RAS after care givers noticed black tarry stool on patient this AM. Patient is pleasantly demented and is an unreliable historian. She was showered and cleaned by staff. The patient complained of some nausea without vomiting, and was diagnosed with gastroenteritis last week. - History of Current Complaint Chief Complaint: EDRectalPain Time Seen by Provider: 08/24/16 08:37 Stated Complaint: RECTAL BLEED Hx Obtained From: EMS Onset/Duration: Started Hours Ago - This AM, Atraumatic Timing: Constant Severity: Mild Current Severity: Mild Vaginal Bleeding Description: Brownish-Red Pain Intensity: 0 Location of Pain: None Associated Signs and Symptoms: Positive: Nausea, Black Tarry Stool - Additional Pertinent History Primary Care Physician: CHRISTIANA - Allergy/Home Medications Allergies/Adverse Reactions: Allergies Allergy/AdvReac Type Severity Reaction Status Date / Time Iodinated Contrast Media Allergy Unknown Unknown Verified 03/02/16 04:20 [IV CONTRAST DYE] Reaction Details Morphine Allergy Unknown Unknown Verified 03/02/16 04:20 Reaction Details PMH/Surg Hx/FS Hx/Imm Hx Cardiovascular History: Reports: Hx Coronary Artery Disease, Hx Hypercholesterolemia Neurological History: Reports: Hx Dementia Psychiatric History: Denies: Hx Eating Disorder, Hx of Violent Episodes Against Others - Cancer History Cancer Type, Location and Year: 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 2004 BOWEL RESECTION - Immunization History Date of Tetanus Vaccine: unk Date of Influenza Vaccine: unk Infectious Disease History: No Infectious Disease History: Denies: Traveled Outside the [place] in Last 30 Days - Family History Known Family History: Positive: Hypertension - Social History Occupation: Retired Lives: At [facility] Alcohol Use: None Hx Substance Use: No Substance Use Type: Reports: None Hx Tobacco Use: No Smoking Status (MU): Never Smoked Tobacco Review of Systems Positive: other - black tarry stool All Other Systems Reviewed And Are Negative: Yes Physical Exam Triage Information Reviewed: Yes Vital Signs On Initial Exam: Initial Vitals Temp Pulse Resp BP Pulse Ox 97.8 F 94 18 124/66 96 08/24/16 08:28 08/24/16 08:28 08/24/16 08:28 08/24/16 08:28 08/24/16 08:28 Vital Signs Reviewed: Yes Completion Of Physical Exam Limited Due To: Dementia Appearance: Positive: Well-Appearing, No Pain Distress, Well-Nourished Skin: Positive: Warm, Skin Color Reflects Adequate Perfusion, Dry, Soft Head/Face: Positive: Normal Head/Face Inspection Eyes: Positive: EOMI, ARTIE, Conjunctiva Clear ENT: Positive: Hearing grossly normal Neck: Positive: Supple, Nontender, No Lymphadenopathy Respiratory/Lung Sounds: Positive: Clear to Auscultation, Breath Sounds Present Cardiovascular: Positive: RRR Abdomen Description: Positive: Soft. Negative: Nontender - epigastric discomfort with palpation, Distended, Guarding Bowel Sounds: Positive: Hypoactive Pelvic Exam: Positive: other - dried blood around anus; black stool with rectal exam without BRB Musculoskeletal: Negative: Edema Left, Edema Right Neurological: Positive: Sensory/Motor Intact, NV Bundle Intact Distally Psychiatric: Positive: Normal - baseline AVPU Assessment: Alert Diagnostics - Vital Signs Vital Signs Temp Pulse Resp BP Pulse Ox 08/24/16 08:28 97.8 F 94 18 124/66 96 - Laboratory Result Diagrams: 08/24/16 08:50 08/24/16 08:59 Lab Statement: Any lab studies that have been ordered have been reviewed, and results considered in the medical decision making process. GIGU Course/Dx - Diagnoses Differential Diagnoses - Female: Bowel Obstruction, Colitis, Gastritis, Gastroenteritis (Viral), Gastroenteritis (Bacterial), Hemorrhoids, Prolapsed Rectum, Rectal Polyps Provider Diagnoses: Rectal bleeding - Physician Notifications Discussed Care Of Patient With: Dr. Ames, emergency department attending; Dr. Andino, hospitalist. Instructed by Provider To: Admit As Inpatient Discharge - Discharge Plan Condition: Stable Disposition: ADMITTED TO [facility] Referrals: Lorin Perkins MD [Primary Care Provider] -
[2016-08-24] MEDS ORDERED: NS 0.9% 1000 ML* 1,000 ML IV ONE (08:58)
[2016-08-24] MEDS ORDERED: Ondansetron INJ* 2 MG/ML VIAL ONE (09:07)
[2016-08-24 09:08] LABS: Hematocrit 40 % (35-47); Hemoglobin 12.8 g/dl (12.0-16.0); Mean Corpuscular HGB Conc 32 g/dl (31-36); Mean Corpuscular Hemoglobin 29 pg (27-31); Mean Corpuscular Volume 90 fL (80-97); Mean Platelet Volume 9 um3 (7.4-10.4); Red Blood Count 4.46 10^6/ul (4.0-5.4); Red Cell Distribution Width 14 % (10.5-15)
[2016-08-24] MEDS ORDERED: Pantoprazole IV* 40 MG IV ONE (09:08)
[2016-08-24 09:19] LABS: BUN/Creatinine Ratio 39.3 (8-20); Calcium 8.3 mg/dL (8.6-10.3); EGFR African American 77.5 (>60); EGFR Non-African American 60.3 (>60); Globulin 3.3 g/dL (2-4); Potassium 4.6 mmol/L (3.5-5.0); Total Bilirubin 0.5 mg/dL (0.2-1.0); Total Protein 6.3 g/dL (6.4-8.9)
[2016-08-24] MEDS ORDERED: Ondansetron INJ* 2 MG/ML VIAL IV ONE (09:39)
[2016-08-24] MEDS: Pantoprazole IV* 80 MG in NS 0.9% 250 ML* 250 ML IV SCH ×2 (09:58→20:39)
[2016-08-24 12:48] LABS: Hematocrit 37 % (35-47); Hemoglobin 12.1 g/dl (12.0-16.0)
[2016-08-24] MEDS: NS 0.9% 1000 ML* 1,000 ML IV SCH (12:54)
[2016-08-24] MEDS: Acetaminophen TAB* 325 MG PO PRN (14:38)
[2016-08-24] MEDS: Metoprolol Succinate XL TAB* 25 MG PO SCH (15:16)
[2016-08-24 18:15] LABS: Hematocrit 34 % (35-47)
[2016-08-24] MEDS ORDERED: Pantoprazole IV* 40 MG ONE (20:26)
[2016-08-24] MEDS: traZODone TAB* 50 MG TAB PO SCH (20:39)
--- NOTE | 2016-08-24 21:17 | CONS ---
CONSULTATION REPORT: DATE OF CONSULT: 08/24/16 REASON FOR CONSULT: GI bleed. HISTORY OF PRESENT ILLNESS: Ms. Brody is an 86-year-old woman with a history of dementia, hypertension, and a remote history of uterine cancer. The patient also had complex diverticular disease and underwent resection of her sigmoid colon about 10 to 12 years ago. She was hospitalized about a week ago for presumed viral gastroenteritis when she presented with nausea, vomiting, and diarrhea. She lives in a nursing facility and many residents have come down with a similar outbreak. She recovered. Stool studies demonstrated her to be Hemoccult negative, cultures were negative, and she was discharged. According to her daughter, who I spoke to as well, a few days ago, she was feeling better. She took her out to eat and seemed to be doing well. This morning, she was reported by the nursing staff to have a black stool. The patient herself has no recollection of this, but due to this finding, the patient was brought to the emergency room where she was hemodynamically stable but was found to be Hemoccult positive. For that reason, she was admitted. Through the course of today, she has had no further bowel movements. There is no report of prior history of GI bleeding. She denies any abdominal pain but she does state that her appetite has been diminished since the infection last week. PAST MEDICAL HISTORY: Includes hypertension, dementia, dyslipidemia, uterine cancer, and diverticular disease. PAST SURGICAL HISTORY: Included an abdominal hysterectomy as well as a sigmoid colon resection for diverticular disease. MEDICATIONS: Her at home medicines were: 1. Metoprolol. 2. Memantine. 3. Trazodone. 4. Lorazepam. 5. Lexapro. 6. Omeprazole. 7. Baby aspirin (the patient was not discharged on the previous admission on PPI). PHYSICAL EXAM: She is a very pleasant, somewhat confused woman with dementia, but in no acute distress. Her blood pressure is 140/70, heart rate is 81 and regular. She does not appear pale. She appears clinically euvolemic. Lungs are clear. Cardiac exam reveals a regular rhythm without murmur. Abdomen is soft without any tru tenderness or distention. Bowel sounds are normoactive. There is no organomegaly. LABORATORY DATA: From this morning, include a hemoglobin of 12.8 which when rechecked this afternoon was 12.1. INR of 1.06. BUN of 35, creatinine of 0.89. Normal liver panel. IMPRESSION: An 86-year-old woman with dementia who presents with evidence of an upper gastrointestinal bleed. This was manifested as a single melenic stool which was guaiac positive. Currently, she is quite stable and maintaining a strong hemoglobin. The etiology for her bleeding could be from a dyspeptic lesion or gastritis. She was experiencing some nausea and vomiting with her gastrointestinal infection and perhaps, this is a manifestation of a Danette- Bee tear as well. In any event, she does seem to be quite clinically compensated, and I do not see the need for endoscopy at this point, and that was discussed with both her and her daughter. IV PPI therapy will continue. We will institute a clear liquid diet and if she tolerates that, that could be advanced to solids. If she has no evidence of gastrointestinal bleeding, then perhaps she could be discharged with followup with her penetration tester. If she does have evidence of ongoing bleeding, then upper endoscopy would be pursued and that was discussed with the patient. CC: Dr. Perkins* [id number]/[facility] #: [id number] MTDMary
[2016-08-25 01:13] LABS: Hematocrit 33 % (35-47); Hemoglobin 10.6 g/dl (12.0-16.0)
--- NOTE | 2016-08-25 03:24 | HP ---
HISTORY AND PHYSICAL: DATE OF ADMISSION: 08/24/16 TIME OF EVALUATION: 11:50 a.m. PRIMARY CARE PROVIDER: Dr. Lorin Perkins. CONSULTING BED LASTER: Dr. Yg Edwards. CHIEF COMPLAINT: "I feel fine." HISTORY OF PRESENT ILLNESS: Mrs. Brody is an 86-year-old lady with past medical history of dementia, hypertension, hyperlipidemia, history of uterine CA , hiatal hernia, diverticulitis with history of laparotomy with sigmoid resection and placement of transverse colostomy, later on reversed, who was sent to the emergency room due to black tarry stools this morning. The patient was admitted to [facility] from 08/16/16 to 08/18/16 with a possible episode of viral gastroenteritis. At that time, she had stool for occult blood , that was negative. Due to her dementia, the patient is a very poor historian and offers no complaints at this time, but information obtained from the emergency room provider (MORENITA Denis) is that caregivers at [facility] noticed black tarry stool on the patient this morning. They also reported the patient did have some complaints of nausea this morning, but no vomiting. David also reported that on her physical examination, the patient was noticed to have dried blood around her anus and a rectal exam revealed black stool, but no bright red blood per rectum. The impression is the patient likely has an upper GI bleed and the hospitalist service was contacted for further evaluation. PAST MEDICAL HISTORY: 1. Hypertension. 2. Hyperlipidemia. 3. Dementia. 4. History of uterine CA in 1999, status post total abdominal hysterectomy and bilateral salpingo-oophorectomy, status post chemotherapy. 5. Hiatal hernia. 6. Diverticulitis. 7. History of cystitis with colovaginal fistula. 8. Status post cholecystectomy. 9. Laparotomy with rectosigmoidectomy and transverse colostomy in 2004. The patient had reversal of her colostomy in 2005. Please note that due to her history of dementia, the patient cannot provide any meaningful history and this information is obtained from her medical record. MEDICATION LIST: 1. Acetaminophen 500 mg p.o. 4 times a day as needed for pain or fever. 2. Vitamin C 500 mg p.o. daily. 3. Aspirin 81 mg p.o. daily. 4. Donepezil 10 mg p.o. daily. 5. Lexapro 5 mg p.o. daily. 6. Lorazepam 0.5 mg p.o. daily. 7. Memantine XR 21 mg p.o. q.a.m. 8. Metoprolol succinate 50 mg p.o. daily. 9. Trazodone 50 mg p.o. daily. 10. Vitamin B complex 1 capsule p.o. daily. ALLERGIES: The patient has unknown reactions to IV CONTRAST and MORPHINE. FAMILY HISTORY: As per records, the patient has a strong family history of heart disease in multiple family members. SOCIAL HISTORY: The patient is a former smoker. She quit 50 years ago and then she restarted around age 71, but has once again quit. No history of alcohol or drug use. She lives at [facility]. Has 3 children and her daughter, Jeannine, and son, Vance are the surrogate decision makers. Jeannine's phone number is [phone]. REVIEW OF SYSTEMS: A 14-point review of systems was performed and all the pertinent negatives and positives findings are in the HPI, but the patient is not a reliable historian. PHYSICAL EXAMINATION GENERAL: The patient is a pleasantly confused elderly lady, lying in bed, in no acute distress. VITAL SIGNS: Temperature 97.5, heart rate is 80, respiratory rate is 16, oxygen saturation is 94% on room air, blood pressure is 116/51. HEENT: Pupils are equal. Moist mucous membranes. CHEST: Breath sounds present bilaterally with no added sounds. CVS: Normal S1, S2. Regular rate and rhythm. ABDOMEN: Obese, soft, nontender, nondistended. Bowel sounds are present. EXTREMITIES: Show no edema. NEUROLOGIC: The patient is alert, awake, oriented to self only. Able to move all 4 extremities. LABORATORY AND IMAGING DATA: The patient had a CBC that showed a WBC of 12,000 , hemoglobin of 12.8, hematocrit of 40, platelet count of 240 with 81% neutrophils. INR is 1.06. Chemistry showed a sodium of 140, potassium 4.6, chloride of 109, bicarb of 27, BUN of 35, creatinine of 0.89, glucose of 120, calcium of 8.3. LFTs are normal. Stool for occult blood performed in the emergency room was positive. ASSESSMENT AND PLAN: Mrs. Brody is an 86-year-old lady with a past medical history of hypertension, hyperlipidemia, dementia, hiatal hernia, diverticulitis , history of uterine carcinoma, who presents to the emergency room with reports of black stool. 1. Possible upper GI bleed. Although the patient has no complaints at this time, there is report of black stool earlier today and the ED provider noted dark stool around the perianal area and her stool for occult blood was positive. The patient was recently admitted with recurrent nausea, vomiting, and diarrhea, felt to be secondary to a viral gastroenteritis and this episode now could be secondary to a Danette-Bee tear, although she has been discharged for almost a week at this point. She is on low-dose aspirin as outpatient and the elevation of her BUN at this time with a normal creatinine does suggest an upper GI source. The plan at this time is to have the patient admitted as inpatient for further monitoring and workup. A GI consult was requested with Dr. Edwards. She will be on a clear liquid diet. We are going to continue on pantoprazole drip. I am holding her oral medications at this point and we are going to monitor her vital signs closely. Her hemoglobin was a little lower in the emergency room than on her discharge a week ago and we are going to check serial H and Hs. No transfusion is indicated at this time. 2. Hypertension. I am going to hold her oral antihypertensives at this point as her blood pressure is on the softer side. We are going to monitor for signs of beta-nicole withdrawal. 3. Dementia. The patient appears to be at her baseline at this point. I am going to hold her oral medications for now and they will be resumed as soon as possible. 4. DVT prophylaxis. The patient has a score of 6 on DVT Prophylaxis Risk Assessment Guide, but pharmacological prophylaxis contraindicated in the setting of a possible upper GI bleed. She will be started on SCDs. 5. Code status. The patient is a do not resuscitate and a MOLST form was filled up to reflect it. TIME SPENT: Approximately 50 minutes were spent with the patient's interview, medical records review, physical examination to complete this admission, more than half this time was spent [id number] with the patient in coordination of care. CC: Dr. Lorin Perkins; Dr. Yg Edwards * [id number]/[facility] #: [id number] [facility]
[2016-08-25] MEDS: NS 0.9% 1000 ML* 1,000 ML IV SCH (05:18)
[2016-08-25 06:11] LABS: Hematocrit 31 % (35-47); Hemoglobin 9.9 g/dl (12.0-16.0); Mean Corpuscular HGB Conc 32 g/dl (31-36); Mean Corpuscular Hemoglobin 30 pg (27-31); Mean Corpuscular Volume 91 fL (80-97); Mean Platelet Volume 9 um3 (7.4-10.4); Red Blood Count 3.37 10^6/ul (4.0-5.4); Red Cell Distribution Width 14 % (10.5-15); White Blood Count 8.2 10^3/ul (3.5-10.8)
[2016-08-25 06:22] LABS: BUN/Creatinine Ratio 30.6 (8-20); Calcium 7.9 mg/dL (8.6-10.3); Potassium 3.9 mmol/L (3.5-5.0)
[2016-08-25] MEDS: Metoprolol Succinate XL TAB* 25 MG PO SCH (09:53)
[2016-08-25] MEDS: Donepezil TAB* 5 MG PO SCH (09:53)
[2016-08-25] MEDS: Pantoprazole IV* 80 MG in NS 0.9% 250 ML* 250 ML IV SCH ×2 (09:55→19:51)
[2016-08-25] MEDS: LORazepam TAB(*) 0.5 MG PO PRN (11:38)
--- NOTE | 2016-08-25 12:17 | PN ---
Subjective Date of Service: 08/25/16 Interval History: Ms. Brody denies complaint. She specifically denies nausea or abdominal pain and has had no bowel movement since admission. She is tolerating oral intake well. She denies chest pain or SOB. Objective Active Medications: Acetaminophen (Tylenol Tab*) 650 mg PO Q6H PRN Donepezil HCl (Aricept Tab*) 10 mg PO DAILY [facility] Pantoprazole Sodium 80 mg/ (Sodium Chloride) 250 mls @ 25 mls/hr IV Q10H [facility] Lorazepam (Ativan Tab(*)) 0.5 mg PO DAILY PRN Metoprolol Succinate (Toprol Xl Tab*) 25 mg PO DAILY [facility] Prochlorperazine Edisylate (Compazine Inj*) 5 mg IV Q6H PRN Trazodone HCl (Desyrel Tab*) 50 mg PO BEDTIME [facility] Vital Signs 08/24/16 08/24/16 08/24/16 14:30 19:35 20:00 Temperature 98.4 F 97.8 F Pulse Rate 81 72 Respiratory 16 16 16 Rate Blood Pressure 140/70 106/50 (mmHg) O2 Sat by Pulse 97 95 Oximetry 08/25/16 08/25/16 08/25/16 00:00 00:14 04:09 Temperature 98.2 F 97.4 F Pulse Rate 82 86 Respiratory 16 16 16 Rate Blood Pressure 119/53 131/66 (mmHg) O2 Sat by Pulse 96 99 Oximetry 08/25/16 08/25/16 08/25/16 07:57 09:00 09:08 Temperature 97.6 F Pulse Rate 73 73 Respiratory 18 18 20 Rate Blood Pressure 116/43 114/64 (mmHg) O2 Sat by Pulse 97 95 Oximetry 08/25/16 11:38 Temperature Pulse Rate Respiratory 16 Rate Blood Pressure (mmHg) O2 Sat by Pulse Oximetry Oxygen Devices in Use Now: None Appearance: Elderly female lying in bed in NAD Respiratory: Symmetrical Chest Expansion and Respiratory Effort, Clear to Auscultation Cardiovascular: NL Sounds; No Murmurs; No JVD, No Edema Abdominal: NL Sounds; No Tenderness; No Distention Extremities: No Edema Skin: No Rash or Ulcers Neurological: NL Muscle Strength and Tone, - - Alert, oriented to self, pleasant Nutrition: Taking PO's Result Diagrams: 08/25/16 05:39 08/25/16 05:39 Microbiology and Other Data: Microbiology 08/24/16 11:12 Nasal Screen MRSA (PCR)(HARISH) - Final Nasal Mrsa Negative Assess/Plan/Problems-Billing Assessment: Ms. Brody is an 86 yo female with a PMH of diverticulitis s/p resection and colostomy reversal, hypertension, and dementia who was admitted on 08/24/16 with dark stool x 1 and concern for GI bleed. - Patient Problems (1) GI bleed Comment: Hgb 12.8-9.9. No further stools. Appreciate GI consult, no indication for endoscopy at this point. Monitor overnight for bleeding, recheck H/H in AM. (2) HTN (hypertension) Comment: BP stable, continue lower dose metoprolol with concern for GI bleed. (3) Dementia Comment: Continue Namenda and Aricept. (4) DVT prophylaxis Comment: SCDs only. (5) DNR (do not resuscitate) Status and Disposition: Inpatient with expected LOS > 2 days. Return to [place] when medically stable.
[2016-08-25] MEDS: PROCHLORPERAZINE INJ 5 MG/ML 2 ML VIAL IV PRN (18:05)
[2016-08-25] MEDS ORDERED: Pantoprazole IV* 40 MG IV SCH (19:20)
[2016-08-25] MEDS: traZODone TAB* 50 MG TAB PO SCH (21:17)
[2016-08-26 05:31] LABS: Hematocrit 27 % (35-47); Hemoglobin 8.6 g/dl (12.0-16.0)
[2016-08-26] MEDS: Donepezil TAB* 5 MG PO SCH (08:25)
[2016-08-26] MEDS: ESCITALOPRAM 5 MG PO SCH (08:25)
[2016-08-26] MEDS: Pantoprazole IV* 40 MG IV SCH ×2 (08:25→20:17)
[2016-08-26] MEDS: Metoprolol Succinate XL TAB* 25 MG PO SCH (08:25)
--- NOTE | 2016-08-26 14:23 | PN ---
Subjective Date of Service: 08/26/16 Interval History: Ms. Brody denies complaint today. She specifically denies chest pain, SOB, nausea, or abdominal pain. Objective Active Medications: Acetaminophen (Tylenol Tab*) 650 mg PO Q6H PRN Donepezil HCl (Aricept Tab*) 10 mg PO DAILY [facility] Escitalopram Oxalate (Lexapro (Nf)) 5 mg PO DAILY [facility] Lorazepam (Ativan Tab(*)) 0.5 mg PO DAILY PRN Metoprolol Succinate (Toprol Xl Tab*) 25 mg PO DAILY [facility] Pantoprazole Sodium (Protonix Iv*) 40 mg IV [facility] Prochlorperazine Edisylate (Compazine Inj*) 5 mg IV Q6H PRN Trazodone HCl (Desyrel Tab*) 50 mg PO BEDTIME [facility] Vital Signs 08/25/16 08/25/16 08/25/16 15:19 16:19 19:54 Temperature 98.2 F 97.7 F 97.6 F Pulse Rate 68 77 85 Respiratory 16 18 18 Rate Blood Pressure 120/50 121/55 128/45 (mmHg) O2 Sat by Pulse 98 96 97 Oximetry 08/25/16 08/25/16 08/26/16 20:00 23:31 04:14 Temperature 97.7 F 98.2 F Pulse Rate 97 98 Respiratory 18 16 16 Rate Blood Pressure 139/47 131/55 (mmHg) O2 Sat by Pulse 97 99 Oximetry 08/26/16 08/26/16 07:40 08:00 Temperature Pulse Rate 81 Respiratory 18 14 Rate Blood Pressure 112/42 (mmHg) O2 Sat by Pulse 98 Oximetry Oxygen Devices in Use Now: None Appearance: Elderly female lying in bed in NAD Respiratory: Symmetrical Chest Expansion and Respiratory Effort, Clear to Auscultation Cardiovascular: NL Sounds; No Murmurs; No JVD, No Edema Abdominal: NL Sounds; No Tenderness; No Distention Extremities: No Edema Skin: No Rash or Ulcers Neurological: NL Muscle Strength and Tone, - - Alert and oriented x 1, pleasant and cooperative Nutrition: Taking PO's Result Diagrams: 08/26/16 05:22 08/25/16 05:39 Microbiology and Other Data: Microbiology 08/24/16 11:12 Nasal Screen MRSA (PCR)(HARISH) - Final Nasal Mrsa Negative Assess/Plan/Problems-Billing Assessment: Ms. Brody is an 86 yo female with a PMH of diverticulitis s/p resection and colostomy reversal, hypertension, and dementia who was admitted on 08/24/16 with dark stool x 1 and concern for GI bleed. - Patient Problems (1) GI bleed Comment: Hgb 12.8 -> 8.6. No further stools. Continue to monitor for bleeding , recheck H/H in AM. Appreciate GI consult, no indication for endoscopy at this point. Will re-consult if clear further bleeding. (2) HTN (hypertension) Comment: BP stable, continue lower dose metoprolol with concern for GI bleed. (3) Dementia Comment: Continue Namenda and Aricept. (4) DVT prophylaxis Comment: SCDs only. (5) DNR (do not resuscitate) Status and Disposition: Inpatient with expected LOS > 2 days. Return to [place] when medically stable.
[2016-08-26] MEDS: Docusate CAP* 100 MG PO SCH (18:27)
[2016-08-26] MEDS: Polyethylene Glycol 3350* 17 GM PACKET PO SCH (18:28)
[2016-08-26] MEDS: PROCHLORPERAZINE INJ 5 MG/ML 2 ML VIAL IV PRN (19:37)
[2016-08-26] MEDS: traZODone TAB* 50 MG TAB PO SCH (20:17)
[2016-08-26 22:39] LABS: Hematocrit 27 % (35-47); Hemoglobin 8.8 g/dl (12.0-16.0)
[2016-08-27 06:24] LABS: Hematocrit 27 % (35-47)
[2016-08-27] MEDS: Donepezil TAB* 5 MG PO SCH (08:46)
[2016-08-27] MEDS: ESCITALOPRAM 5 MG PO SCH (08:46)
[2016-08-27] MEDS: Metoprolol Succinate XL TAB* 25 MG PO SCH (08:46)
[2016-08-27] MEDS: Polyethylene Glycol 3350* 17 GM PACKET PO SCH (08:46)
[2016-08-27] MEDS: Pantoprazole IV* 40 MG IV SCH ×2 (08:46→20:01)
[2016-08-27] MEDS: Docusate CAP* 100 MG PO SCH (08:46)
[2016-08-27] MEDS: PROCHLORPERAZINE INJ 5 MG/ML 2 ML VIAL IV PRN (10:00)
--- NOTE | 2016-08-27 11:30 | PN ---
Subjective Date of Service: 08/27/16 Interval History: Ms. Brody reports feeling nausea last night and this morning. She is noted to have had one small tarry stool with some tru blood. She denies abdominal pain. She denies chest pain, SOB. Objective Active Medications: Acetaminophen (Tylenol Tab*) 650 mg PO Q6H PRN Docusate Sodium (Colace Cap*) 200 mg PO DAILY [facility] Donepezil HCl (Aricept Tab*) 10 mg PO DAILY [facility] Escitalopram Oxalate (Lexapro (Nf)) 5 mg PO DAILY [facility] Lorazepam (Ativan Tab(*)) 0.5 mg PO DAILY PRN Metoprolol Succinate (Toprol Xl Tab*) 25 mg PO DAILY [facility] Pantoprazole Sodium (Protonix Iv*) 40 mg IV 08,1999 [facility] Polyethylene Glycol/Electrolytes (Miralax*) 17 gm PO DAILY [facility] Prochlorperazine Edisylate (Compazine Inj*) 5 mg IV Q6H PRN Sucralfate (Carafate*) 1 gm PO TID [facility] Trazodone HCl (Desyrel Tab*) 50 mg PO BEDTIME [facility] Vital Signs 08/26/16 08/26/16 08/27/16 15:29 20:00 00:17 Temperature 97.4 F 97.8 F Pulse Rate 80 90 Respiratory 16 16 16 Rate Blood Pressure 116/76 122/38 (mmHg) O2 Sat by Pulse 97 97 Oximetry 08/27/16 08/27/16 07:30 08:00 Temperature 97.5 F Pulse Rate 85 Respiratory 18 16 Rate Blood Pressure 110/38 (mmHg) O2 Sat by Pulse 98 Oximetry Oxygen Devices in Use Now: None Appearance: Elderly female sitting up in chair in NAD Respiratory: Symmetrical Chest Expansion and Respiratory Effort, Clear to Auscultation Cardiovascular: NL Sounds; No Murmurs; No JVD Abdominal: NL Sounds; No Tenderness; No Distention Extremities: No Edema Skin: No Rash or Ulcers Neurological: NL Muscle Strength and Tone, - - Alert and oriented x 1, pleasant and cooperative Nutrition: Taking PO's Result Diagrams: 08/27/16 05:59 08/25/16 05:39 Microbiology and Other Data: Microbiology 08/24/16 11:12 Nasal Screen MRSA (PCR)(HARISH) - Final Nasal Mrsa Negative Assess/Plan/Problems-Billing Assessment: Ms. Brody is an 86 yo female with a PMH of diverticulitis s/p resection and colostomy reversal, hypertension, and dementia who was admitted on 08/24/16 with dark stool x 1 and concern for GI bleed. - Patient Problems (1) GI bleed Comment: Hgb stable at 9.0. One tarry stool last night. Suspect symptoms are secondary to recent bout of gastroenteritis. Continue protonix, add sucralfate. Appreciate GI input, to see this weekend. (2) HTN (hypertension) Comment: BP stable, continue lower dose metoprolol with concern for GI bleed. (3) Dementia Comment: Continue Namenda and Aricept. (4) DVT prophylaxis Comment: SCDs only. (5) DNR (do not resuscitate) Status and Disposition: Inpatient with expected LOS > 2 days. Return to [place] when medically stable.
[2016-08-27] MEDS: Sucralfate TAB* 1 GM PO SCH ×2 (13:33→20:02)
[2016-08-27] MEDS: traZODone TAB* 50 MG TAB PO SCH (20:02)
[2016-08-27] MEDS: LORazepam TAB(*) 0.5 MG PO PRN (20:02)
[2016-08-28 06:45] LABS: Hematocrit 41 % (35-47); Hemoglobin 14.1 g/dl (12.0-16.0)
[2016-08-28] MEDS: Polyethylene Glycol 3350* 17 GM PACKET PO SCH (07:50)
[2016-08-28] MEDS: Pantoprazole IV* 40 MG IV SCH (08:01)
[2016-08-28] MEDS: Metoprolol Succinate XL TAB* 25 MG PO SCH (08:01)
[2016-08-28] MEDS: Docusate CAP* 100 MG PO SCH (08:01)
[2016-08-28] MEDS: Sucralfate TAB* 1 GM PO SCH ×3 (08:01→20:06)
[2016-08-28] MEDS: Donepezil TAB* 5 MG PO SCH (08:04)
[2016-08-28] MEDS: ESCITALOPRAM 5 MG PO SCH (08:08)
[2016-08-28 08:16] LABS: Hematocrit 26 % (35-47); Hemoglobin 8.6 g/dl (12.0-16.0)
--- NOTE | 2016-08-28 12:24 | PN ---
Subjective Date of Service: 08/28/16 Interval History: Ms. Brody states she is feeling much better today. She denies nausea and states that she had a bowel movement this morning. She denies chest pain or SOB. Objective Active Medications: Acetaminophen (Tylenol Tab*) 650 mg PO Q6H PRN PRN Reason: PAIN/FEVER Last Admin: 08/24/16 14:38 Dose: 650 mg Docusate Sodium (Colace Cap*) 200 mg PO DAILY [facility] Last Admin: 08/28/16 08:01 Dose: 200 mg Donepezil HCl (Aricept Tab*) 10 mg PO DAILY [facility] Last Admin: 08/28/16 08:04 Dose: 10 mg Escitalopram Oxalate (Lexapro (Nf)) 5 mg PO DAILY [facility] Last Admin: 08/28/16 08:08 Dose: 5 mg Lorazepam (Ativan Tab(*)) 0.5 mg PO DAILY PRN PRN Reason: ANXIETY Last Admin: 08/27/16 20:02 Dose: 0.5 mg Metoprolol Succinate (Toprol Xl Tab*) 25 mg PO DAILY [facility] Last Admin: 08/28/16 08:01 Dose: 25 mg Pantoprazole Sodium (Protonix Iv*) 40 mg IV 08,1999 [facility] Last Admin: 08/28/16 08:01 Dose: 40 mg Polyethylene Glycol/Electrolytes (Miralax*) 17 gm PO DAILY [facility] Last Admin: 08/28/16 07:50 Dose: Not Given Prochlorperazine Edisylate (Compazine Inj*) 5 mg IV Q6H PRN PRN Reason: NAUSEA/VOMITING Last Admin: 08/27/16 10:00 Dose: 5 mg Sucralfate (Carafate*) 1 gm PO TID [facility] Last Admin: 08/28/16 08:01 Dose: 1 gm Trazodone HCl (Desyrel Tab*) 50 mg PO BEDTIME [facility] Last Admin: 08/27/16 20:02 Dose: 50 mg Vital Signs 08/27/16 08/27/16 08/27/16 15:57 19:34 19:47 Temperature 97.8 F 98.9 F Pulse Rate 90 89 Respiratory 16 19 18 Rate Blood Pressure 137/57 116/51 (mmHg) O2 Sat by Pulse 95 97 Oximetry 08/27/16 08/27/16 08/28/16 20:02 22:02 07:33 Temperature 98.1 F Pulse Rate 96 Respiratory 19 16 16 Rate Blood Pressure 148/61 (mmHg) O2 Sat by Pulse 95 Oximetry 08/28/16 07:38 Temperature Pulse Rate Respiratory 18 Rate Blood Pressure (mmHg) O2 Sat by Pulse Oximetry Oxygen Devices in Use Now: None Appearance: Elderly female sitting up in bed in NAD Respiratory: Symmetrical Chest Expansion and Respiratory Effort, Clear to Auscultation Cardiovascular: NL Sounds; No Murmurs; No JVD, No Edema Abdominal: NL Sounds; No Tenderness; No Distention Extremities: No Edema Skin: No Rash or Ulcers Neurological: NL Muscle Strength and Tone, - - Alert and oriented x 1, pleasant and cooperative Nutrition: Taking PO's Result Diagrams: 08/28/16 08:01 08/25/16 05:39 Microbiology and Other Data: Microbiology 08/24/16 11:12 Nasal Screen MRSA (PCR)(HARISH) - Final Nasal Mrsa Negative Assess/Plan/Problems-Billing Assessment: Ms. Brody is an 86 yo female with a PMH of diverticulitis s/p resection and colostomy reversal, hypertension, and dementia who was admitted on 08/24/16 with dark stool x 1 and concern for GI bleed. - Patient Problems (1) GI bleed Comment: Hgb stable at 8.6. Suspect symptoms are secondary to recent bout of gastroenteritis. Continue omeprazole and sucralfate. Appreciate GI input, no indication for endoscopy at this point. (2) HTN (hypertension) Comment: BP stable, continue lower dose metoprolol with concern for GI bleed. (3) Dementia Comment: Continue Namenda and Aricept. (4) DVT prophylaxis Comment: SCDs only. (5) DNR (do not resuscitate) Status and Disposition: Inpatient with expected LOS > 2 days. Return to [place] when medically stable.
[2016-08-28] MEDS: Omeprazole CAP* 20 MG PO SCH (20:06)
[2016-08-28] MEDS: traZODone TAB* 50 MG TAB PO SCH (20:06)
[2016-08-29] MEDS: Polyethylene Glycol 3350* 17 GM PACKET PO SCH (09:37)
[2016-08-29] MEDS: Donepezil TAB* 5 MG PO SCH (09:38)
[2016-08-29] MEDS: Omeprazole CAP* 20 MG PO SCH ×2 (09:38→21:36)
[2016-08-29] MEDS: Metoprolol Succinate XL TAB* 25 MG PO SCH (09:39)
[2016-08-29] MEDS: ESCITALOPRAM 5 MG PO SCH (09:39)
[2016-08-29] MEDS: Sucralfate TAB* 1 GM PO SCH ×3 (09:39→21:36)
[2016-08-29] MEDS: Docusate CAP* 100 MG PO SCH (09:39)
--- NOTE | 2016-08-29 11:17 | PN ---
Subjective Date of Service: 08/29/16 Interval History: Ms. Brody states that she is feeling fine today. She denies nausea or abdominal pain. She is tolerating oral intake well. She also denies chest pain or SOB. Objective Active Medications: Acetaminophen (Tylenol Tab*) 650 mg PO Q6H PRN Docusate Sodium (Colace Cap*) 200 mg PO DAILY [facility] Donepezil HCl (Aricept Tab*) 10 mg PO DAILY [facility] Escitalopram Oxalate (Lexapro (Nf)) 5 mg PO DAILY [facility] Lorazepam (Ativan Tab(*)) 0.5 mg PO DAILY PRN Metoprolol Succinate (Toprol Xl Tab*) 25 mg PO DAILY [facility] Omeprazole (Prilosec Cap*) 20 mg PO BID [facility] Polyethylene Glycol/Electrolytes (Miralax*) 17 gm PO DAILY [facility] Prochlorperazine Edisylate (Compazine Inj*) 5 mg IV Q6H PRN Sucralfate (Carafate*) 1 gm PO TID [facility] Trazodone HCl (Desyrel Tab*) 50 mg PO BEDTIME [facility] Vital Signs 08/28/16 08/28/16 08/29/16 20:00 20:48 06:01 Temperature 97.6 F 98.1 F Pulse Rate 80 86 Respiratory 16 16 18 Rate Blood Pressure 137/33 111/42 (mmHg) O2 Sat by Pulse 97 90 Oximetry Oxygen Devices in Use Now: None Respiratory: Symmetrical Chest Expansion and Respiratory Effort, Clear to Auscultation Cardiovascular: NL Sounds; No Murmurs; No JVD, No Edema Abdominal: NL Sounds; No Tenderness; No Distention Extremities: No Edema Skin: No Rash or Ulcers Neurological: NL Muscle Strength and Tone, - - Alert and oriented x 1, pleasant and cooperative Nutrition: Taking PO's Result Diagrams: 08/28/16 08:01 08/25/16 05:39 Microbiology and Other Data: Microbiology 08/24/16 11:12 Nasal Screen MRSA (PCR)(HARISH) - Final Nasal Mrsa Negative Assess/Plan/Problems-Billing Assessment: Ms. Brody is an 86 yo female with a PMH of diverticulitis s/p resection and colostomy reversal, hypertension, and dementia who was admitted on 08/24/16 with dark stool x 1 and concern for GI bleed. - Patient Problems (1) GI bleed Comment: Hgb stable at 8.6. Suspect symptoms are secondary to recent bout of gastroenteritis. Continue omeprazole and sucralfate. Appreciate GI input, no indication for endoscopy at this point. (2) HTN (hypertension) Comment: BP stable, continue lower dose metoprolol with concern for GI bleed. (3) Dementia Comment: Continue Namenda and Aricept. (4) DVT prophylaxis Comment: SCDs only. (5) DNR (do not resuscitate) Status and Disposition: Inpatient with expected LOS > 2 days. Return to [place] when medically stable. Pt ambulated ~100 feet but needed CGA. Will need to ambulate 200 feet indenpendently before return to [place]. Continue PT. If not better tomorrow will likely need subacute rehab.
[2016-08-29] MEDS ORDERED: Docusate CAP* 100 MG PO PRN (13:51)
[2016-08-29] MEDS ORDERED: Polyethylene Glycol 3350* 17 GM PACKET PO PRN (13:51)
--- NOTE | 2016-08-29 14:05 | PN ---
Subjective Date of Service: 08/29/16 Interval History: Patient seen and examined at bedside. She is pleasantly confused. Nursing reports patient recently had large, dark, runny stool, but the patient does not recall. She states, "I feel fine." She denies CP, SOB, abd pain, n/v. She states , "I've been eating really well" though nursing reports that she only had a few bites of toast this morning. Son, Vance, is at bedside. He is in agreement with the plan of care. Family History: Unchanged from Admission Social History: Unchanged from Admission Past Medical History: Unchanged from Admission Objective Active Medications: Acetaminophen (Tylenol Tab*) 650 mg PO Q6H PRN PRN Reason: PAIN/FEVER Last Admin: 08/24/16 14:38 Dose: 650 mg Docusate Sodium (Colace Cap*) 200 mg PO DAILY PRN PRN Reason: CONSTIPATION Donepezil HCl (Aricept Tab*) 10 mg PO DAILY [facility] Last Admin: 08/29/16 09:38 Dose: 10 mg Escitalopram Oxalate (Lexapro (Nf)) 5 mg PO DAILY [facility] Last Admin: 08/29/16 09:39 Dose: 5 mg Lorazepam (Ativan Tab(*)) 0.5 mg PO DAILY PRN PRN Reason: ANXIETY Last Admin: 08/27/16 20:02 Dose: 0.5 mg Metoprolol Succinate (Toprol Xl Tab*) 25 mg PO DAILY [facility] Last Admin: 08/29/16 09:39 Dose: 25 mg Omeprazole (Prilosec Cap*) 20 mg PO BID [facility] Last Admin: 08/29/16 09:38 Dose: 20 mg Polyethylene Glycol/Electrolytes (Miralax*) 17 gm PO DAILY PRN PRN Reason: CONSTIPATION Prochlorperazine Edisylate (Compazine Inj*) 5 mg IV Q6H PRN PRN Reason: NAUSEA/VOMITING Last Admin: 08/27/16 10:00 Dose: 5 mg Sucralfate (Carafate*) 1 gm PO TID [facility] Last Admin: 08/29/16 13:58 Dose: 1 gm Trazodone HCl (Desyrel Tab*) 50 mg PO BEDTIME [facility] Last Admin: 08/28/16 20:06 Dose: 50 mg Vital Signs 08/28/16 08/28/16 08/29/16 20:00 20:48 06:01 Temperature 97.6 F 98.1 F Pulse Rate 80 86 Respiratory 16 16 18 Rate Blood Pressure 137/33 111/42 (mmHg) O2 Sat by Pulse 97 90 Oximetry Oxygen Devices in Use Now: None Appearance: Elderly female, OOB to chair, in NAD Eyes: PERRLA Ears/Nose/Mouth/Throat: Clear Oropharnyx, Mucous Membranes Moist Neck: NL Appearance and Movements; NL JVP Respiratory: Symmetrical Chest Expansion and Respiratory Effort, Clear to Auscultation Cardiovascular: NL Sounds; No Murmurs; No JVD, RRR Abdominal: NL Sounds; No Tenderness; No Distention Extremities: No Edema Skin: No Rash or Ulcers Neurological: - - Alert, oriented to self, pleasant and cooperative Lines/Tubes/Other Access: Clean, Dry and Intact Peripheral IV Nutrition: Taking PO's Result Diagrams: 08/28/16 08:01 08/25/16 05:39 Microbiology and Other Data: Microbiology 08/24/16 11:12 Nasal Screen MRSA (PCR)(HARISH) - Final Nasal Mrsa Negative Assess/Plan/Problems-Billing Assessment: Ms. Brody is an 86 yo female with a PMH of diverticulitis s/p resection and colostomy reversal, hypertension, and dementia who was admitted on 08/24/16 with dark stool x 1 and concern for GI bleed. - Patient Problems (1) GI bleed Code(s): K92.2 - GASTROINTESTINAL HEMORRHAGE, UNSPECIFIED Comment: One episode of runny stools this morning following docusate and Miralax. Hgb previously stable. Will recheck Hgb this afternoon and monitor pt overnight. VSS. Suspect symptoms are secondary to recent bout of gastroenteritis. Continue omeprazole and sucralfate. Appreciate GI input, no indication for endoscopy at this point, unless tarry stools persist. (2) HTN (hypertension) Code(s): I10 - ESSENTIAL (PRIMARY) HYPERTENSION Comment: BP stable, continue lower dose metoprolol with concern for GI bleed. (3) Dementia Code(s): F03.90 - UNSPECIFIED DEMENTIA WITHOUT BEHAVIORAL DISTURBANCE Comment : Continue Namenda and Aricept. (4) DVT prophylaxis Code(s): LBU1966 - Comment: SCDs only (5) DNR (do not resuscitate) Status and Disposition: Inpatient with expected LOS > 2 days. Return to [place] when medically stable. Pt ambulated ~100 feet but needed CGA. Will need to ambulate 200 feet independently before return to [place]. Continue PT. If not better tomorrow, will likely need subacute rehab.
[2016-08-29 15:46] LABS: Hematocrit 26 % (35-47); Hemoglobin 8.4 g/dl (12.0-16.0); Mean Corpuscular HGB Conc 32 g/dl (31-36); Mean Corpuscular Hemoglobin 29 pg (27-31); Mean Corpuscular Volume 91 fL (80-97); Mean Platelet Volume 9 um3 (7.4-10.4); Red Blood Count 2.87 10^6/ul (4.0-5.4); Red Cell Distribution Width 14 % (10.5-15); White Blood Count 11.7 10^3/ul (3.5-10.8)
[2016-08-29 16:20] LABS: BUN/Creatinine Ratio 19.5 (8-20); Calcium 8.8 mg/dL (8.6-10.3); EGFR African American 91.6 (>60); EGFR Non-African American 71.2 (>60); Potassium 3.6 mmol/L (3.5-5.0)
[2016-08-29] MEDS: LORazepam TAB(*) 0.5 MG PO PRN (17:01)
[2016-08-29] MEDS: traZODone TAB* 50 MG TAB PO SCH (21:36)
[2016-08-30 06:04] LABS: Hematocrit 24 % (35-47); Hemoglobin 7.7 g/dl (12.0-16.0); Mean Corpuscular HGB Conc 33 g/dl (31-36); Mean Corpuscular Hemoglobin 30 pg (27-31); Mean Corpuscular Volume 91 fL (80-97); Mean Platelet Volume 9 um3 (7.4-10.4); Red Cell Distribution Width 15 % (10.5-15)
[2016-08-30] MEDS: PROCHLORPERAZINE INJ 5 MG/ML 2 ML VIAL IV PRN (06:19)
[2016-08-30 06:24] LABS: BUN/Creatinine Ratio 17.9 (8-20); Calcium 8.4 mg/dL (8.6-10.3); EGFR African American 90.3 (>60); EGFR Non-African American 70.2 (>60); Potassium 3.5 mmol/L (3.5-5.0)
[2016-08-30] MEDS: Donepezil TAB* 5 MG PO SCH (08:03)
[2016-08-30] MEDS: ESCITALOPRAM 5 MG PO SCH (08:03)
[2016-08-30] MEDS: Metoprolol Succinate XL TAB* 25 MG PO SCH (08:03)
[2016-08-30] MEDS: Omeprazole CAP* 20 MG PO SCH (08:03)
[2016-08-30] MEDS: Sucralfate TAB* 1 GM PO SCH ×2 (08:04→14:46)
[2016-08-30] MEDS: Acetaminophen TAB* 325 MG PO PRN (08:05)
--- NOTE | 2016-08-30 13:49 | PN ---
Subjective Date of Service: 08/30/16 Interval History: Patient seen and examined at bedside. Pt states that she is feeling well. Denies fever, chills, shortness of breath, chest discomfort, abdominal pain, N/V /D. Per aide in the room with Pt she was able to eat 50% of her lunch. Pt was able to ambulate 250 feet in the halls with PT and a walker, Pt is felt to be stable and able to ambulate in IND at home. Family History: Unchanged from Admission Social History: Unchanged from Admission Past Medical History: Unchanged from Admission Objective Active Medications: Acetaminophen (Tylenol Tab*) 650 mg PO Q6H PRN Reason: PAIN/FEVER Docusate Sodium (Colace Cap*) 200 mg PO DAILY PRN Reason: CONSTIPATION Donepezil HCl (Aricept Tab*) 10 mg PO DAILY [facility] Escitalopram Oxalate (Lexapro (Nf)) 5 mg PO DAILY [facility] Lorazepam (Ativan Tab(*)) 0.5 mg PO DAILY PRN Reason: ANXIETY Metoprolol Succinate (Toprol Xl Tab*) 25 mg PO DAILY [facility] Omeprazole (Prilosec Cap*) 20 mg PO BID [facility] Polyethylene Glycol/Electrolytes (Miralax*) 17 gm PO DAILY PRN Reason: CONSTIPATION Prochlorperazine Edisylate (Compazine Inj*) 5 mg IV Q6H PRN Reason: NAUSEA/ VOMITING Sucralfate (Carafate*) 1 gm PO TID [facility] Trazodone HCl (Desyrel Tab*) 50 mg PO BEDTIME [facility] Vital Signs 08/29/16 08/29/16 08/29/16 15:47 17:01 19:01 Temperature 97.5 F Pulse Rate 97 Respiratory 16 18 18 Rate Blood Pressure 113/42 (mmHg) O2 Sat by Pulse 98 Oximetry 08/29/16 08/30/16 08/30/16 20:00 00:37 07:30 Temperature 97.5 F Pulse Rate 92 97 Respiratory 18 17 16 Rate Blood Pressure 137/48 144/53 (mmHg) O2 Sat by Pulse 95 95 Oximetry Oxygen Devices in Use Now: None Appearance: NAD, laying in bed. Eyes: No Scleral Icterus, PERRLA Ears/Nose/Mouth/Throat: NL Teeth, Lips, Gums, Mucous Membranes Moist Neck: NL Appearance and Movements; NL JVP, Trachea Midline Respiratory: Symmetrical Chest Expansion and Respiratory Effort, Clear to Auscultation Cardiovascular: NL Sounds; No Murmurs; No JVD, RRR Abdominal: NL Sounds; No Tenderness; No Distention - Bowel sounds present Extremities: No Edema Skin: No Rash or Ulcers Neurological: NL Muscle Strength and Tone, - - Alert and Oriented to Person, confused Lines/Tubes/Other Access: Clean, Dry and Intact Peripheral IV - site benign Nutrition: Taking PO's Result Diagrams: 08/30/16 05:26 08/30/16 05:26 Microbiology and Other Data: Microbiology 08/24/16 11:12 Nasal Screen MRSA (PCR)(HARISH) - Final Nasal Mrsa Negative Assess/Plan/Problems-Billing Assessment: Ms. Brody is an 86 yo female with a PMH of diverticulitis s/p resection and colostomy reversal, hypertension, and dementia who was admitted on 08/24/16 with dark stool x 1 and concern for GI bleed. - Patient Problems (1) GI bleed Code(s): K92.2 - GASTROINTESTINAL HEMORRHAGE, UNSPECIFIED SNOMED Code(s): 20240722 Comment: - No further episodes of runny stools today. - Hgb stable. - VSS. - Suspect symptoms are secondary to recent bout of gastroenteritis. - Continue omeprazole and sucralfate for now. Appreciate GI input, no indication for endoscopy at this point, unless tarry stools persist. (2) HTN (hypertension) Code(s): I10 - ESSENTIAL (PRIMARY) HYPERTENSION SNOMED Code(s): 58344902 Comment: - BP stable, SBP 130-140's - Continue lower dose metoprolol with concern for GI bleed for now. (3) Dementia Code(s): F03.90 - UNSPECIFIED DEMENTIA WITHOUT BEHAVIORAL DISTURBANCE SNOMED Code(s): 46591796 Comment: - Continue Namenda and Aricept. (4) DVT prophylaxis Code(s): SHH7964 - SNOMED Code(s): 506844192 (5) DNR (do not resuscitate) Status and Disposition: Inpatient with expected LOS > 2 days. Pt ambulated ~250 feet, she needed a few cues to ambulate in the unfamiliar environment of the hospital. Stable for return to [place].
[2016-08-30 14:08] VITALS: BP 112/50
--- NOTE | 2016-08-31 21:37 | DS ---
DISCHARGE SUMMARY: DATE OF ADMISSION: 08/24/16 DATE OF DISCHARGE: 08/30/16 ATTENDING PHYSICIAN: Myriam Bethea MD *(dictated by Lucila Sun NP) PRIMARY CARE PROVIDER: Lorin Perkins MD. PRIMARY DIAGNOSIS: Possible upper gastrointestinal bleed. SECONDARY DIAGNOSES: 1. Hypertension. 2. Dementia. CONSULTATIONS WHILE IN THE HOSPITAL: Yg Edwards MD, Gastroenterology. DISCHARGE MEDICATIONS: New home medications: 1. Omeprazole 20 mg oral twice daily. 2. Carafate 1 g oral 3 times daily. CONTINUED HOME MEDICATIONS: 1. Vitamin C 500 mg oral daily. 2. Trazodone 50 mg oral daily at bedtime. 3. Vitamin B complex 1 capsule oral daily. 4. Namenda XR 21 mg oral daily. 5. Lorazepam 0.5 mg oral daily. 6. Lexapro 5 mg oral daily. 7. Aricept 10 mg oral daily. 8. Acetaminophen 500 mg oral 4 times daily as needed for fever or pain. CHANGED HOME MEDICATIONS: Metoprolol succinate 25 mg oral daily. DISCONTINUED HOME MEDICATIONS: Aspirin 81 mg oral daily. HISTORY OF PRESENT ILLNESS/HOSPITAL COURSE: Ms. Brody is an 86-year-old female with past medical history significant for dementia, hypertension, hyperlipidemia , diverticulitis, who presented to the emergency room with complaints of black tarry stools. Prior to that the patient was admitted from 08/16/16 to 08/18/16 with a possible episode of viral gastroenteritis that was coming around her assisted living community. At that time, the patient had stool for occult blood that was negative. Due to the patient's dementia, she is a very poor historian but offered no complaints. The caregivers at [facility] noticed one episode of tarry stools prior to sending the patient to the emergency room. It is to note that the patient did have complaints of nausea but no vomiting. Based on the concern of upper GI bleed, the hospitalists were asked to evaluate the patient for admission. While in the hospital, the patient had stool for occult blood that was positive. The patient was seen in consultation by Dr. Yg Edwards with Gastroenterology. It was felt that the patient's hemoglobin was stable and that her bleeding could be from a dyspeptic lesion or gastritis. It was felt that there was no need for an endoscopy at this time. The patient was started on PPI drip and was transitioned over to oral PPI. The patient was tolerating a soft diet and had no further evidence of GI bleeding. It was felt that the patient could be discharged with followup with her primary care provider and if she had evidence of ongoing bleeding, then an upper endoscopy could be pursued. The patient and family agreed. During the patient's time here, her H and H's remained stable. The patient was noted to have a slight leukocytosis with white blood cell count of 11. The patient's vital signs have been stable. Ms. Brody is stable for discharge to home today. Vital signs are as follows. Temperature 97.5, heart rate 89, respiratory rate 16, O2 sat 97% on room air, blood pressure 112/50. DISCHARGE PLAN: Ms. Brody will be discharged back to [facility]. At this time, the patient is able to return to her prior level of care. Activity as tolerated. A soft diet until she is feeling back to her normal self. The patient should be seen in followup with Dr. Perkins. The patient had an appointment for today. She should be seen in the next week in followup. The patient has also been set up with visiting nurse services. As far as the medications for the patient's hypertension, metoprolol dose has been decreased from 50 to 25 as she was having soft blood pressures, I recommend following this outpatient and adjusting as needed. As far as the patient's GI bleed, she was then started on omeprazole twice daily and Carafate 3 times daily. If the patient shows signs of further bleeding, she should be seen by Gastroenterology for a possible EGD. Once there is no further concern for a GI bleeding, she may be resumed on her Aspirin. The patient should return to the emergency room for any shortness of breath or chest pain. This summary is report of a complex medical history hospital stay. For further details, please see the entire medical record. TIME SPENT: Time for this discharge was 50 minutes and 25 minutes was spent face- to-face with the patient discussing discharge plans and instructions. CONDITION ON DISCHARGE: Stable. Reviewed by TIFFANIE OWENS 09/02/16 1818 CC: Lorin Perkins MD* [id number]/[facility] #: [id number] MECHE
== END 2016-08-30 15:00 | disposition home health service (06) | DRG 379 ==
LOC: ED 08:27 → MEDTELE 09:38 → MED 08-29 05:30
PROVIDERS: ADMIT Internal Medicine; ATTEND Internal Medicine
DX: K29.71 Gastritis, unspecified, with bleeding (principal); F03.90 Unspecified dementia, unspecified severity, without behavioral disturbance, psychotic disturbance, mood disturbance, and anxiety; I25.10 Atherosclerotic heart disease of native coronary artery without angina pectoris; E78.00 Pure hypercholesterolemia, unspecified; I10 Essential (primary) hypertension; E78.5 Hyperlipidemia, unspecified; K44.9 Diaphragmatic hernia without obstruction or gangrene; Z66 Do not resuscitate; R11.0 Nausea; D72.829 Elevated white blood cell count, unspecified; Z88.5 Allergy status to narcotic agent; Z91.041 Radiographic dye allergy status; Z85.42 Personal history of malignant neoplasm of other parts of uterus; Z90.49 Acquired absence of other specified parts of digestive tract; Z82.49 Family history of ischemic heart disease and other diseases of the circulatory system; Z90.710 Acquired absence of both cervix and uterus; Z90.722 Acquired absence of ovaries, bilateral; Z92.21 Personal history of antineoplastic chemotherapy; Z87.891 Personal history of nicotine dependence
CPT/HCPCS: 36415; 80048; 80053; 82272; 85014; 85018; 85025; 85610; 85730; 86850; 86900; 86901; 87641; A9270-GY; J0780; J2405

== ENCOUNTER 2016-09-09 09:48 | Emergency (ER) | payer MEDICARE, BC ==
--- NOTE | 2016-09-09 10:47 | ED ---
Lower Extremity - HPI Summary HPI Summary: Patient lives at [facility] and was going door to door looking for a friend when she opened a door and stumbled forward, and fell. The fall was unwitnessed but staff was very near and helped her up. She was able to ambulate afterward, but since she has dementia she was brought in for evaluation. She is not sure if she hit her head, but her right hip hurts. Not prior injury to her hip and she takes on baby aspirin daily. 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 Hx From Patient Unobtainable Due To: Dementia Mechanism Of Injury: Fall From A Standing Position Onset of Pain: Hours - 2 Onset/Duration: Hours - 2 Severity Initially: Mild Severity Currently: Mild Timing: Constant Location: Is Discrete @ - right hip Character Of Pain: Aching Associated Signs And Symptoms: Positive: Negative Aggravating Factor(s): Movement Alleviating Factor(s): Rest Able to Bear Weight: Yes - Allergies/Home Medications Allergies/Adverse Reactions: Allergies Allergy/AdvReac Type Severity Reaction Status Date / Time Iodinated Contrast Media Allergy Unknown Unknown Verified 03/02/16 04:20 [IV CONTRAST DYE] Reaction Details Morphine Allergy Unknown Unknown Verified 03/02/16 04:20 Reaction Details Home Medications: Home Medications Oxybutynin TAB* [Ditropan TAB*] 5 mg PO QAM 09/09/16 [History Confirmed 09/09/16 ] PMH/Surg Hx/FS Hx/Imm Hx Cardiovascular History: Reports: Hx Coronary Artery Disease, Hx Hypercholesterolemia, Hx Hypertension GI History: Reports: Hx Diverticulosis Neurological History: Reports: Hx Dementia Psychiatric History: Denies: Hx Eating Disorder, Hx of Violent Episodes Against Others - Cancer History Cancer Type, Location and Year: 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 2004 BOWEL RESECTION - Immunization History Date of Tetanus Vaccine: unk Date of Influenza Vaccine: unk Infectious Disease History: Denies: Traveled Outside the [place] in Last 30 Days - Family History Known Family History: Positive: Hypertension - Social History Occupation: Retired Lives: At [facility] Alcohol Use: None Hx Substance Use: No Substance Use Type: Reports: None Hx Tobacco Use: No Smoking Status (MU): Former Smoker Review of Systems Positive: Myalgia - right hip. Negative: Decreased ROM, Edema Negative: Bruising Negative: Weakness, Paresthesia All Other Systems Reviewed And Are Negative: Yes Physical Exam Triage Information Reviewed: Yes Vital Signs Reviewed: Yes Appearance: Positive: Well-Appearing, Well-Nourished, Pain Distress Skin: Positive: Warm, Skin Color Reflects Adequate Perfusion, Dry, Soft Head/Face: Positive: Normal Head/Face Inspection Eyes: Positive: EOMI, ARTIE, Conjunctiva Clear ENT: Positive: Hearing grossly normal, Pharynx normal, TMs normal Neck: Positive: Supple, Nontender, No Lymphadenopathy Respiratory/Lung Sounds: Positive: Clear to Auscultation, Breath Sounds Present Cardiovascular: Positive: RRR Abdomen Description: Positive: Nontender, Soft. Negative: CVA Tenderness (R), CVA Tenderness (L), Distended, Guarding Bowel Sounds: Positive: Present Musculoskeletal: Positive: Strength/ROM Intact, Pain @ - TTP right greater trochanter, non-tender righ groin or pelvis. Negative: Edema Right Neurological: Positive: Sensory/Motor Intact, Alert, Oriented to Person Place, Time Psychiatric: Positive: Affect/Mood Appropriate - baseline as per son AVPU Assessment: Alert Diagnostics - Laboratory Lab Statement: Any lab studies that have been ordered have been reviewed, and results considered in the medical decision making process. - Radiology No standard instances Xray Interpretation: No Acute Changes Radiology Interpretation Completed By: Radiologist - CT No standard instances CT Interpretation: No Acute Changes CT Interpretation Completed By: Radiologist Lower Extremity Course/Dx - Diagnoses Differential Diagnosis/HQI/PQRI: Positive: Bursitis, Cellulitis, Contusion, Fracture (Closed), Sprain, Strain Provider Diagnoses: Contusion of right hip Discharge - Discharge Plan Condition: Stable Disposition: HOME Patient Education Materials: Hip Contusion (ED) Referrals: Lorin Perkins MD [Primary Care Provider] - Additional Instructions: Please use Tylenol for pain as needed. Use your walker at all times to reduce the risk of future falls. Follow-up with your primary care provider in 2-3 days for re-evaluation. Return to the emergency department if your symptoms worsen.
--- NOTE | 2016-09-09 11:17 | RAD ---
HISTORY: Fall, head trauma COMPARISONS: May 21, 2006 TECHNIQUE: Multiple contiguous axial CT scans were obtained of the head without intravenous contrast. FINDINGS: HEMORRHAGE/INFARCT: There is no hemorrhage or acute infarct. MASSES/SHIFT: There is no mass or shift. EXTRA-AXIAL SPACES: There are no extra-axial fluid collections. SULCI AND VENTRICLES: The sulci and ventricles are normal in size and position for the patient's stated age. CEREBRUM: There is hypoattenuation of the periventricular and subcortical white matter. BRAINSTEM: There are no focal parenchymal abnormalities. CEREBELLUM: There are no focal parenchymal abnormalities. VESSELS: The vessels are grossly normal. PARANASAL SINUSES: The paranasal sinuses are clear. ORBITS: The orbits are unremarkable. BONES AND SOFT TISSUE: No bone or soft tissue abnormalities are noted. OTHER: None IMPRESSION: NO ACUTE INTRACRANIAL PATHOLOGY. CHRONIC SMALL VESSEL ISCHEMIC CHANGES.
--- NOTE | 2016-09-09 11:18 | RAD ---
HISTORY: Trauma, fall head COMPARISONS: None TECHNIQUE: Multiple contiguous axial CT scans were obtained of the cervical spine without intravenous contrast, with coronal and sagittal multiplanar reformations. FINDINGS: BRAIN: The visualized brain is unremarkable CENTRAL CANAL: Evaluation of the central canal is limited on CT technique; however, there is no obvious canalicular mass or epidural hemorrhage. ALIGNMENT: There is a scoliotic curvature of the spine VERTEBRAL BODIES: There is diffuse osteopenia. There is no displaced fracture. There is multilevel anterolateral marginal osteophyte formation. The odontoid process is intact. JOINTS: There is osteoarthritis of the uncovertebral and facet joints and the atlantoaxial articulation. MUSCULATURE: Unremarkable INTERVERTEBRAL DISCS: There is diffuse loss of intervertebral disc height. AXIAL IMAGES: On axial images, there is multilevel uncovertebral and facet osteoarthritis. There is moderate to severe bilateral neural foraminal narrowing at C5-C6. There is no osseous central canal stenosis. SOFT TISSUES: The visualized soft tissues of the neck are unremarkable. The prevertebral fat stripe is preserved. OTHER: None. IMPRESSION: OSTEOPENIA. DEGENERATIVE DISC DISEASE AND OSTEOARTHRITIS. NO ACUTE OSSEOUS INJURY TO THE CERVICAL SPINE
--- NOTE | 2016-09-09 12:13 | RAD ---
Indication: Fall onto RIGHT hip. Denies pain. Comparison: August 16, 2016 CT. March 23, 2011 DEXA scan documented osteoporosis. Technique: AP pelvis and AP and frog-leg lateral views RIGHT hip. Report: The RIGHT hip is normally located. No suspicious cortical or trabecular irregularity evident to indicate fracture of the RIGHT proximal femur. Negative for pelvic fracture or joint diastases. The acetabular floors of both hips project medial to the ilioischial lines consistent with coxa profunda. Minimal acetabular osteophytosis at both hips. Mild axial joint space narrowing at both hips. Innumerable pelvic surgical clips. Unremarkable soft tissue contours accounting for body habitus. IMPRESSION: No radiographic evidence for RIGHT hip or pelvic fracture. No radiographic evidence for hip fracture. As x-rays may be negative with nondisplaced hip fracture if there is persistent clinical concern MRI or in setting of contraindication to MRI or limitation in emergent access to MRI CT would be suggested.
[2016-09-09 12:51] VITALS: BP 103/31
== END 2016-09-09 12:49 | disposition home or self-care (01) ==
LOC: ED 09:48
DX: S70.01XA Contusion of right hip, initial encounter (principal); M50.30 Other cervical disc degeneration, unspecified cervical region; M79.1 Myalgia; Z87.891 Personal history of nicotine dependence; W19.XXXA Unspecified fall, initial encounter; Y93.9 Activity, unspecified; Y92.9 Unspecified place or not applicable
CPT/HCPCS: 70450; 72125; 99282

== ENCOUNTER 2017-05-29 19:06 | Emergency (ER) | payer MEDICARE, BC ==
[2017-05-29] MEDS ORDERED: NS 0.9% 1000 ML* 1,000 ML IV SCH (19:30)
--- NOTE | 2017-05-29 19:57 | RAD ---
Indication: Fall. Abdominal pain. Comparison: May 19, 2017 CT. Technique: Upright AP 1924 hours. Report: Elevated lung volumes and mild prominence of the interstitial markings. Mild cardiomegaly. Unremarkable central pulmonary vasculature and mediastinal contours accounting for leftward rotation. Mildly tortuous descending thoracic aorta. Negative for free air beneath the diaphragm. Gallbladder fossa level surgical clips. Healed proximal RIGHT humeral fracture. IMPRESSION: Stigmata of probable obstructive lung disease. No acute pulmonary or cardiac process evident.
[2017-05-29 20:16] LABS: Albumin 3.5 g/dL (3.2-5.2); BUN/Creatinine Ratio 16.4 (8-20); C Reactive Protein 9.27 mg/L (< 5.00); Calcium 9.1 mg/dL (8.6-10.3); EGFR Non-African American 44.3 (>60); Globulin 3.9 g/dL (2-4); Magnesium 2.2 mg/dL (1.9-2.7); Potassium 4.3 mmol/L (3.5-5.0); Total Bilirubin 0.2 mg/dL (0.2-1.0); Total Protein 7.4 g/dL (6.4-8.9)
[2017-05-29 20:17] LABS: Troponin I 0.01 ng/mL (<0.04)
[2017-05-29 20:22] LABS: Hematocrit 44 % (35-47); Hemoglobin 14.2 g/dl (12.0-16.0); Mean Corpuscular HGB Conc 33 g/dl (31-36); Mean Corpuscular Hemoglobin 28 pg (27-31); Mean Corpuscular Volume 87 fL (80-97); Mean Platelet Volume 9 um3 (7.4-10.4); Red Blood Count 5.04 10^6/ul (4.0-5.4); Red Cell Distribution Width 14 % (10.5-15); White Blood Count 9.2 10^3/ul (3.5-10.8)
[2017-05-29 20:57] LABS: TSH (Thyroid Stimulating Horm) 0.95 mcIU/mL (0.34-5.60)
[2017-05-29 22:08] LABS: Urine Bilirubin Negative (Negative); Urine Glucose Negative (Negative); Urine Nitrite Negative (Negative)
[2017-05-29 22:45] VITALS: BP 104/51
--- NOTE | 2017-05-30 00:49 | ED ---
Cheng Haddad Nikita, scribed for Jerzy Espitia MD on 05/29/17 at 2210 . Complex/Multi-Sys Presentation - HPI Summary HPI Summary: This patient is an 87 year old F BIBA to ED with a chief complaint of multiple falls. The pt fell this morning and this evening. The pt reports she is not in any pain. Symptoms aggravated by nothing. Symptoms alleviated by nothing. Patient reports L knee soreness. Pt denies abdominal pain. Per EMS, the pt fell because of abdominal pain. However, the son denies the abdominal pain and states the pt fell because of L knee pain and weakness. Son also reports that she has been having foot cramps and she is leaking considerably. Son is not sure if the pt had LOC. Pt is in the dementia unit at [facility]. Pt has an appointment tomorrow with Dr. Scott. - History Of Current Complaint Chief Complaint: EDWeakness Time Seen by Provider: 05/29/17 21:54 Hx Obtained From: Patient, Family/Individual Small Group Instructor, EMS Hx From Patient Unobtainable Due To: Dementia Onset/Duration: Sudden Onset, Lasting Hours Severity Currently: None Location: Negative Aggravating Factor(s): nothing Alleviating Factor(s): nothing Associated Signs And Symptoms: Positive: Other - Patient reports L knee soreness. Pt denies abdominal pain. Per EMS, the pt fell because of abdominal pain. However, the son denies the abdominal pain and states the pt fell because of L knee pain and weakness. Son also reports that she has been having foot cramps and she is leaking considerably. Son is not sure if the pt had LOC. - Allergies/Home Medications Allergies/Adverse Reactions: Allergies Allergy/AdvReac Type Severity Reaction Status Date / Time Iodinated Contrast Media Allergy Unknown Unknown Verified 03/02/16 04:20 [IV CONTRAST DYE] Reaction Details Morphine Allergy Unknown Unknown Verified 12/05/16 14:13 Reaction Details PMH/Surg Hx/FS Hx/Imm Hx Cardiovascular History: Reports: Hx Coronary Artery Disease, Hx Hypercholesterolemia, Hx Hypertension GI History: Reports: Hx Diverticulosis Neurological History: Reports: Hx Dementia Psychiatric History: Denies: Hx Eating Disorder, Hx of Violent Episodes Against Others - Cancer History Cancer Type, Location and Year: 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 2005 BOWEL RESECTION - Immunization History Date of Tetanus Vaccine: unk Date of Influenza Vaccine: unk Infectious Disease History: No Infectious Disease History: Denies: Traveled Outside the US in Last 30 Days - Family History Known Family History: Positive: Hypertension - Social History Alcohol Use: None Hx Substance Use: No Substance Use Type: Reports: None Hx Tobacco Use: No Smoking Status (MU): Former Smoker Review of Systems Negative: Abdominal Pain Genitourinary: Other - pt is leaking considerably Positive: Other - multiple falls today, L knee soreness, foot cramps Neurological: Other - son is not sure of LOC All Other Systems Reviewed And Are Negative: Yes Physical Exam Triage Information Reviewed: Yes Vital Signs On Initial Exam: Initial Vitals Temp Pulse Resp BP Pulse Ox 97.8 F 85 18 122/80 98 05/29/17 19:14 05/29/17 19:14 05/29/17 19:14 05/29/17 19:14 05/29/17 19:14 Vital Signs Reviewed: Yes Appearance: Positive: Well-Appearing, No Pain Distress Skin: Positive: Warm, Skin Color Reflects Adequate Perfusion, Dry Head/Face: Positive: Normal Head/Face Inspection Eyes: Positive: EOMI, ARTIE ENT: Positive: Normal ENT inspection Neck: Positive: Supple, Nontender Respiratory/Lung Sounds: Positive: Clear to Auscultation, Breath Sounds Present Cardiovascular: Positive: RRR Abdomen Description: Positive: Nontender, Soft Bowel Sounds: Positive: Present Musculoskeletal: Positive: Normal, Strength/ROM Intact, Other - moving all extremities, legs are non-tender to palpation Neurological: Positive: Sensory/Motor Intact, Alert, Oriented to Person Place, Time, Other - dementia Psychiatric: Positive: Affect/Mood Appropriate - [place] Coma Scale Coma Scale Total: 14 Diagnostics - Vital Signs Vital Signs Temp Pulse Resp BP Pulse Ox 05/29/17 19:14 97.8 F 85 18 122/80 98 - Laboratory Lab Results: Lab Results 05/29/17 05/29/17 05/29/17 Range/Units 19:51 19:51 19:51 WBC (3.5-10.8) 10^3/ul RBC (4.0-5.4) 10^6/ul Hgb (12.0-16.0) g/dl Hct (35-47) % MCV (80-97) fL MCH (27-31) pg MCHC (31-36) g/dl RDW (10.5-15) % Plt Count (150-450) 10^3/ul MPV (7.4-10.4) um3 Neut % (Auto) (38-83) % Lymph % (Auto) (25-47) % [place] % (Auto) (1-9) % Eos % (Auto) (0-6) % Baso % (Auto) (0-2) % Absolute Neuts (auto) (1.5-7.7) 10^3/ul Absolute Lymphs (auto) (1.0-4.8) 10^3/ul Absolute Monos (auto) (0-0.8) 10^3/ul Absolute Eos (auto) (0-0.6) 10^3/ul Absolute Basos (auto) (0-0.2) 10^3/ul Absolute Nucleated RBC 10^3/ul Nucleated RBC % INR (Anticoag Therapy) 1.00 (0.89-1.11) APTT 33.1 (26.0-36.3) seconds Sodium 136 (133-145) mmol/L Potassium 4.3 (3.5-5.0) mmol/L Chloride 103 (101-111) mmol/L Carbon Dioxide 29 (22-32) mmol/L Anion Gap 4 (2-11) mmol/L BUN 19 (6-24) mg/dL Creatinine 1.16 H (0.51-0.95) mg/dL Est GFR ( Amer) 57.0 (>60) Est GFR (Non-Af Amer) 44.3 (>60) BUN/Creatinine Ratio 16.4 (8-20) Glucose 108 H (70-100) mg/dL Lactic Acid (0.5-2.0) mmol/L Calcium 9.1 (8.6-10.3) mg/dL Magnesium 2.2 (1.9-2.7) mg/dL Total Bilirubin 0.20 (0.2-1.0) mg/dL AST 12 L (13-39) U/L ALT 10 (7-52) U/L Alkaline Phosphatase 113 H (34-104) U/L Troponin I 0.01 (<0.04) ng/mL C-Reactive Protein 9.27 H (< 5.00) mg/L B-Natriuretic Peptide 21 ( - 100) pg/mL Total Protein 7.4 (6.4-8.9) g/dL Albumin 3.5 (3.2-5.2) g/dL Globulin 3.9 (2-4) g/dL Albumin/Globulin Ratio 0.9 L (1-3) Lipase 70 (11.0-82.0) U/L TSH 0.95 (0.34-5.60) mcIU/mL 05/29/17 05/29/17 Range/Units 19:51 19:51 WBC 9.2 (3.5-10.8) 10^3/ul RBC 5.04 (4.0-5.4) 10^6/ul Hgb 14.2 (12.0-16.0) g/dl Hct 44 (35-47) % MCV 87 (80-97) fL MCH 28 (27-31) pg MCHC 33 (31-36) g/dl RDW 14 (10.5-15) % Plt Count 235 (150-450) 10^3/ul MPV 9 (7.4-10.4) um3 Neut % (Auto) 66.8 (38-83) % Lymph % (Auto) 21.7 L (25-47) % [place] % (Auto) 8.5 (1-9) % Eos % (Auto) 2.2 (0-6) % Baso % (Auto) 0.8 (0-2) % Absolute Neuts (auto) 6.2 (1.5-7.7) 10^3/ul Absolute Lymphs (auto) 2.0 (1.0-4.8) 10^3/ul Absolute Monos (auto) 0.8 (0-0.8) 10^3/ul Absolute Eos (auto) 0.2 (0-0.6) 10^3/ul Absolute Basos (auto) 0.1 (0-0.2) 10^3/ul Absolute Nucleated RBC 0 10^3/ul Nucleated RBC % 0 INR (Anticoag Therapy) (0.89-1.11) APTT (26.0-36.3) seconds Sodium (133-145) mmol/L Potassium (3.5-5.0) mmol/L Chloride (101-111) mmol/L Carbon Dioxide (22-32) mmol/L Anion Gap (2-11) mmol/L BUN (6-24) mg/dL Creatinine (0.51-0.95) mg/dL Est GFR ( Amer) (>60) Est GFR (Non-Af Amer) (>60) BUN/Creatinine Ratio (8-20) Glucose (70-100) mg/dL Lactic Acid 1.4 (0.5-2.0) mmol/L Calcium (8.6-10.3) mg/dL Magnesium (1.9-2.7) mg/dL Total Bilirubin (0.2-1.0) mg/dL AST (13-39) U/L ALT (7-52) U/L Alkaline Phosphatase (34-104) U/L Troponin I (<0.04) ng/mL C-Reactive Protein (< 5.00) mg/L B-Natriuretic Peptide ( - 100) pg/mL Total Protein (6.4-8.9) g/dL Albumin (3.2-5.2) g/dL Globulin (2-4) g/dL Albumin/Globulin Ratio (1-3) Lipase (11.0-82.0) U/L TSH (0.34-5.60) mcIU/mL Result Diagrams: 05/29/17 19:51 05/29/17 19:51 Lab Statement: Any lab studies that have been ordered have been reviewed, and results considered in the medical decision making process. - Radiology CXR Radiology Interpretation Completed By: Radiologist - Stigmata of probable obstructive lung disease. No acute pulmonary or cardiac process evident. ED physician has reviewed this radiology report and agrees. - EKG 1928 Cardiac Rate: NL EKG Rhythm: Sinus Rhythm - [address] Segment: Normal Ectopy: PACs Re-Evaluation - Re-Evaluation First Eval Re-Evaluation Time: 22:21 Comment: Discussed results and discharge plan with pt. Complex Multi-Symp Course/Dx Assessment/Plan: This patient is an 87 year old F BIBA to ED with a chief complaint of multiple falls. The pt fell this morning and this evening. The pt reports she is not in any pain. Symptoms aggravated by nothing. Symptoms alleviated by nothing. Patient reports L knee soreness. Pt denies abdominal pain. Per EMS, the pt fell because of abdominal pain. However, the son denies the abdominal pain and states the pt fell because of L knee pain and weakness. Son also reports that she has been having foot cramps and she is leaking considerably. Son is not sure if the pt had LOC. Medications reviewed. Allergies noted. CXR reveals stigmata of probable obstructive lung disease. No acute pulmonary or cardiac process evident. ED physician has reviewed this radiology report and agrees. EKG reveals NSR at 81 bpm, nml ST, and PACs. In the ED course, pt was given fluids. Pt will be discharged. Pt and family are agreeable with this plan. DISCUSSED RESULTS WITH PATIENT/SON. THEY FEEL COMFORTABLE WITH GOING BACK TO [place]. THEY HAVE F/U WITH CARDIOLOGY ON 05/30. RETURN IF WORSE. - Diagnoses Provider Diagnoses: Weakness, Falls frequently Discharge - Discharge Plan Condition: Stable Disposition: HOME Patient Education Materials: Fall Prevention for Older Adults (ED), Weakness ( ED) Referrals: Lorin Perkins MD [Primary Care Provider] - Additional Instructions: FOLLOW UP WITH YOUR DOCTOR. RETURN TO THE EMERGENCY DEPARTMENT FOR ANY WORSENING OF YOUR CONDITION OR QUESTIONS OR CONCERNS. The documentation as recorded by the Cheng thomas Nikita accurately reflects the service I personally performed and the decisions made by me, Jerzy Espitia MD.
== END 2017-05-29 22:59 | disposition home or self-care (01) ==
LOC: ED 19:06
DX: R53.1 Weakness (principal); M25.562 Pain in left knee; Z91.81 History of falling
CPT/HCPCS: 36415; 71010; 80053; 81003; 83605; 83690; 83735; 83880; 84443; 84484; 85025; 85610; 85730; 86140; 93005; 99285

== ENCOUNTER 2017-11-23 17:01 | Emergency (ER) | payer MEDICARE, BC ==
[2017-11-23] MEDS ORDERED: NS 0.9% 1000 ML* 1,000 ML IV ONE (17:32)
[2017-11-23 18:37] LABS: ABS Basophils 0 10^3/ul (0-0.2); ABS Eosinophils 0 10^3/ul (0-0.6); ABS Lymphocytes 0.7 10^3/ul (1.0-4.8); ABS Monocytes 0.5 10^3/ul (0-0.8); ABS Neutrophils 9.8 10^3/ul (1.5-7.7); ABS Nucleated RBC 0 10^3/ul; Eosinophil % 0.3 % (0-6); Hematocrit 48 % (35-47); Hemoglobin 15.6 g/dl (12.0-16.0); Lymphocyte % 6.2 % (25-47); Mean Corpuscular HGB Conc 33 g/dl (31-36); Mean Corpuscular Hemoglobin 28 pg (27-31); Mean Corpuscular Volume 87 fL (80-97); Mean Platelet Volume 9.4 um3 (7.4-10.4); Nucleated Red Blood Cells % 0; Platelet Count 198 10^3/ul (150-450); Red Blood Count 5.52 10^6/ul (4.0-5.4); Red Cell Distribution Width 14 % (10.5-15)
[2017-11-23 21:27] VITALS: BP 182/66
--- NOTE | 2017-11-23 21:36 | ED ---
Afshin Haddad Stephanie, scribed for Domenico Ames MD on 11/23/17 at 1737 . GI/ HPI - HPI Summary HPI Summary: The pt is an 87 y/o F presenting to the ED with c/o N/V/D since this morning. Symptoms include recent fall today and decreased energy. She denies abd pain. The pt lives at [facility]. - History of Current Complaint Time Seen by Provider: 11/23/17 17:12 Stated Complaint: FALL Hx Obtained From: Family/[employer]imator Onset/Duration: Started Hours Ago, Still Present Timing: Constant Current Severity: Moderate Pain Intensity: 0 Associated Signs and Symptoms: Positive: Nausea, Vomiting, Diarrhea, Other: - fall Aggravating Factor(s): Nothing Alleviating Factor(s): Nothing - Additional Pertinent History Primary Care Physician: [id number] - Allergy/Home Medications Allergies/Adverse Reactions: Allergies Allergy/AdvReac Type Severity Reaction Status Date / Time Iodinated Contrast- Oral and Allergy Unknown Verified 11/23/17 18:26 IV Dye Reaction Details morphine Allergy Unknown Verified 11/23/17 18:26 Reaction Details Home Medications: Home Medications Acetaminophen [Acetaminophen Extra Strength] 500 mg PO QID PRN 11/23/17 [ History Confirmed 11/23/17] Cyanocobalamin TAB* [Vitamin B12 TAB*] 1,000 mcg PO DAILY 11/23/17 [History Confirmed 11/23/17] Omeprazole CAP* [Prilosec CAP* 20 MG] 20 mg PO BID 11/23/17 [History Confirmed 11/23/17] Polyethylene Glycol 3350* [Miralax*] 17 gm PO DAILY 11/23/17 [History Confirmed 11/23/17] QUEtiapine TAB* [Seroquel 25 MG TAB*] 25 mg PO QAM 11/23/17 [History Confirmed 11/23/17] QUEtiapine TAB* [Seroquel 25 MG TAB*] 25 mg PO QPM 11/23/17 [History Confirmed 11/23/17] Senna TAB* [Senokot TAB*] 1 tab PO BID 11/23/17 [History Confirmed 11/23/17] PMH/Surg Hx/FS Hx/Imm Hx Cardiovascular History: Reports: Hx Coronary Artery Disease, Hx Hypercholesterolemia, Hx Hypertension GI History: Reports: Hx Diverticulosis EENT History: Denies: Hx Deafness Neurological History: Reports: Hx Dementia Psychiatric History: Denies: Hx Eating Disorder, Hx of Violent Episodes Against Others - Cancer History Cancer Type, 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 2005 BOWEL RESECTION - Immunization History Date of Tetanus Vaccine: unk Date of Influenza Vaccine: unk Infectious Disease History: No Infectious Disease History: Denies: Traveled Outside the [place] in Last 30 Days - Family History Known Family History: Positive: Hypertension - Social History Occupation: Retired Lives: Assisted Living Alcohol Use: None Hx Substance Use: No Substance Use Type: Reports: None Hx Tobacco Use: No Smoking Status (MU): Former Smoker Review of Systems Positive: Other - decreased energy. Negative: Fever Positive: Vomiting, Diarrhea, Nausea. Negative: Abdominal Pain Skin: Negative All Other Systems Reviewed And Are Negative: Yes Physical Exam - Summary Physical Exam Summary: Appearance: The patient is well-nourished in no acute distress and in no acute pain. Skin: The skin is warm and dry and skin color reflects adequate perfusion. HEENT: The head is normocephalic and atraumatic. The pupils are equal and reactive. The conjunctivae are clear and without drainage. Nares are patent and without drainage. Mouth reveals dry mucous membranes and the throat is without erythema and exudate. The external ears are intact. The ear canals are patent and without drainage. The tympanic membranes are intact. Neck: the neck is supple with full range of motion and non-tender. There are no carotid bruits. There is no neck vein distension. Respiratory: Chest is non-tender. Lungs are clear to auscultation and breath sounds are symmetrical and equal. Cardiovascular: Heart is regular rate and rhythm. There is no murmur or rub auscultated. There is no peripheral edema and pulses are symmetrical and equal. Abdomen: The abdomen is soft and non-tender. There are normal bowel sounds heard in all four quadrants and there is no organomegaly palpated. Musculoskeletal: There is no back tenderness noted. Extremities are non-tender with full range of motion. There is good capillary refill. There is no peripheral edema or calf tenderness elicited. Neurological: Patient is alert and oriented to person, place and time. The patient has symmetrical motor strength in all four extremities. Cranial nerves are grossly intact. Deep tendon reflexes are symmetrical and equal in all four extremities. Psychiatric: The patient has an appropriate affect and does not exhibit any anxiety or depression. Triage Information Reviewed: Yes Vital Signs On Initial Exam: Initial Vitals Temp Pulse Resp BP Pulse Ox 98 F 97 18 144/82 94 11/23/17 17:13 11/23/17 17:13 11/23/17 17:13 11/23/17 17:13 11/23/17 17:13 Vital Signs Reviewed: Yes Diagnostics - Vital Signs Vital Signs Temp Pulse Resp BP Pulse Ox 11/23/17 17:13 98 F 97 18 144/82 94 - Laboratory Lab Results: Lab Results 11/23/17 11/23/17 11/23/17 Range/Units 18:19 18:19 18:19 WBC 11.0 H (3.5-10.8) 10^3/ul RBC 5.52 H (4.0-5.4) 10^6/ul Hgb 15.6 (12.0-16.0) g/dl Hct 48 H (35-47) % MCV 87 (80-97) fL MCH 28 (27-31) pg MCHC 33 (31-36) g/dl RDW 14 (10.5-15) % Plt Count 198 (150-450) 10^3/ul MPV 9.4 (7.4-10.4) um3 Neut % (Auto) 88.4 H (38-83) % Lymph % (Auto) 6.2 L (25-47) % [place] % (Auto) 5.0 (0-7) % Eos % (Auto) 0.3 (0-6) % Baso % (Auto) 0.1 (0-2) % Absolute Neuts (auto) 9.8 H (1.5-7.7) 10^3/ul Absolute Lymphs (auto) 0.7 L (1.0-4.8) 10^3/ul Absolute Monos (auto) 0.5 (0-0.8) 10^3/ul Absolute Eos (auto) 0 (0-0.6) 10^3/ul Absolute Basos (auto) 0 (0-0.2) 10^3/ul Absolute Nucleated RBC 0 10^3/ul Nucleated RBC % 0 Sodium 137 L (139-145) mmol/L Potassium 4.2 (3.5-5.0) mmol/L Chloride 103 (101-111) mmol/L Carbon Dioxide 25 (22-32) mmol/L Anion Gap 9 (2-11) mmol/L BUN 20 (6-24) mg/dL Creatinine 1.01 H (0.51-0.95) mg/dL Est GFR ( Amer) 66.8 (>60) Est GFR (Non-Af Amer) 52.0 (>60) BUN/Creatinine Ratio 19.8 (8-20) Glucose 131 H (70-100) mg/dL Lactic Acid 1.2 (0.5-2.0) mmol/L Calcium 9.3 (8.6-10.3) mg/dL Magnesium 2.1 (1.9-2.7) mg/dL Total Bilirubin 0.40 (0.2-1.0) mg/dL AST 16 (13-39) U/L ALT 10 (7-52) U/L Alkaline Phosphatase 120 H (34-104) U/L Troponin I 0.00 (<0.04) ng/mL Total Protein 8.0 (6.4-8.9) g/dL Albumin 4.0 (3.2-5.2) g/dL Globulin 4.0 (2-4) g/dL Albumin/Globulin Ratio 1.0 (1-3) TSH 0.84 (0.34-5.60) mcIU/mL Result Diagrams: 11/23/17 18:19 11/23/17 18:19 Lab Statement: Any lab studies that have been ordered have been reviewed, and results considered in the medical decision making process. - EKG 17:44 Cardiac Rate: NL EKG Rhythm: Sinus Rhythm - 90 BPM EKG Interpretation: PSVC GIGU Course/Dx - Course Course Of Treatment: Ms. Brody had a little diarrhea this AM and fell later in the morning. Subsequently, she vomited a couple times and C/O'd nausea. Her only C/O here was nausea and she was pleasant and alert. I gave her some IV NSand antiemetic and she felt much better. It seem likely that this is viral and apparently some of the other residents have had a diarrheal illness also. - Diagnoses Provider Diagnoses: Viral syndrome Discharge - Sign-Out/Discharge Documenting (check all that apply): Discharge/Admit/Transfer - discharge - Discharge Plan Condition: Stable Disposition: HOME Patient Education Materials: Viral Syndrome (ED) Referrals: Lorin Perkins MD [Primary Care Provider] - 2 Days Additional Instructions: Return to the ED for any new or worsening symptoms. - Billing Disposition and Condition Condition: STABLE Disposition: HOME The documentation as recorded by the Afshin thomas Stephanie accurately reflects the service I personally performed and the decisions made by , Domenico Ames MD.
== END 2017-11-23 22:06 | disposition home or self-care (01) ==
LOC: ED 17:01
DX: B34.9 Viral infection, unspecified (principal); I25.10 Atherosclerotic heart disease of native coronary artery without angina pectoris; I10 Essential (primary) hypertension; E78.00 Pure hypercholesterolemia, unspecified; K57.90 Diverticulosis of intestine, part unspecified, without perforation or abscess without bleeding; F03.90 Unspecified dementia, unspecified severity, without behavioral disturbance, psychotic disturbance, mood disturbance, and anxiety; Z90.49 Acquired absence of other specified parts of digestive tract; Z88.5 Allergy status to narcotic agent; Z91.041 Radiographic dye allergy status; Z87.891 Personal history of nicotine dependence
CPT/HCPCS: 36415; 80053; 83605; 83735; 84443; 84484; 85025; 93005; 96360; 99283

== ENCOUNTER 2017-11-28 14:34 | Emergency (ER) | payer MEDICARE, BC ==
[2017-11-28] MEDS ORDERED: NS 0.9% 1000 ML* 1,000 ML IV ONE ×2 (15:22→15:23)
--- NOTE | 2017-11-28 15:27 | RAD ---
Indication: Confusion. Single frontal view of the chest performed at 1512 hours was reviewed. Comparison is made with previous exam dated May 29, 2017. No mediastinal shift is noted. Mild cardiomegaly is noted. No evidence of pleural fluid, pneumonia or pneumothorax is noted. IMPRESSION: NO ACTIVE CARDIOPULMONARY DISEASE IS NOTED.
[2017-11-28 15:38] LABS: ABS Basophils 0.1 10^3/ul (0-0.2); ABS Eosinophils 0.1 10^3/ul (0-0.6); ABS Lymphocytes 1.8 10^3/ul (1.0-4.8); ABS Neutrophils 7.5 10^3/ul (1.5-7.7); ABS Nucleated RBC 0 10^3/ul; Eosinophil % 0.9 % (0-6); Hematocrit 48 % (35-47); Hemoglobin 16.2 g/dl (12.0-16.0); Lymphocyte % 17.6 % (25-47); Mean Corpuscular HGB Conc 34 g/dl (31-36); Mean Corpuscular Hemoglobin 29 pg (27-31); Mean Corpuscular Volume 85 fL (80-97); Mean Platelet Volume 9.2 um3 (7.4-10.4); Nucleated Red Blood Cells % 0.2; Platelet Count 232 10^3/ul (150-450); Red Blood Count 5.64 10^6/ul (4.0-5.4); Red Cell Distribution Width 14 % (10.5-15); White Blood Count 10.4 10^3/ul (3.5-10.8)
[2017-11-28 15:47] LABS: INR 1.01 (0.77-1.02)
--- NOTE | 2017-11-28 15:54 | RAD ---
HISTORY: Altered mental status COMPARISONS: May 19, 2017 TECHNIQUE: Multiple contiguous axial CT scans were obtained of the head without intravenous contrast. FINDINGS: HEMORRHAGE/INFARCT: There is no hemorrhage or acute infarct. MASSES/SHIFT: There is no mass or shift. EXTRA-AXIAL SPACES: There are no extra-axial fluid collections. SULCI AND VENTRICLES: There is diffuse and proportional enlargement of the sulci and ventricles. CEREBRUM: There is hypoattenuation of the periventricular and subcortical white matter. BRAINSTEM: There are no focal parenchymal abnormalities. CEREBELLUM: There are no focal parenchymal abnormalities. VESSELS: The vessels are grossly normal. PARANASAL SINUSES: The paranasal sinuses are clear. ORBITS: The orbits are unremarkable. BONES AND SOFT TISSUE: No bone or soft tissue abnormalities are noted. OTHER: None IMPRESSION: NO ACUTE INTRACRANIAL PATHOLOGY. DIFFUSE INVOLUTIONAL CHANGE WITH CHRONIC SMALL VESSEL ISCHEMIC CHANGES.
[2017-11-28 15:55] LABS: EGFR Non-African American 41.4 (>60)
[2017-11-28] MEDS ORDERED: Potassium Chlor TAB* 20 MEQ TAB.ER PO ONE (16:14)
[2017-11-28] MEDS ORDERED: Magnesium Oxide TAB* 400 MG PO ONE (16:14)
[2017-11-28] MEDS ORDERED: NS 0.9% w/ 40 Meq KCL 1000 ML* 1,000 ML IV SCH (17:00)
--- NOTE | 2017-11-28 18:38 | ED ---
Nicolasa Haddad Gabriel, scribed for Clement Wood MD on 11/28/17 at 1512 . Complex/Multi-Sys Presentation - HPI Summary HPI Summary: This patient is a 87 year old F BIBA to [facility] accompanied by her daughter after being sent from [place] due to poor eating and drinking habits for the past 10 days, they are concerned about dehydration. Pt was recently diagnosed with a virus and has been having trouble ambulating. Patient reports vomiting, diarrhea , and weakness. Patient denies fall, fever, increased confusion, recent abx use , and pain. Seen here before for similar issue. - History Of Current Complaint Chief Complaint: EDGeneral Time Seen by Provider: 11/28/17 14:53 Hx Obtained From: Patient Onset/Duration: Lasting Days - 10, Still Present Timing: Constant - Allergies/Home Medications Allergies/Adverse Reactions: Allergies Allergy/AdvReac Type Severity Reaction Status Date / Time Iodinated Contrast- Oral and Allergy Unknown Verified 11/23/17 18:26 IV Dye Reaction Details morphine Allergy Unknown Verified 11/23/17 18:26 Reaction Details Home Medications: Home Medications LORazepam TAB(*) [Ativan 0.5 MG TAB (*)] 1 mg PO BID 11/28/17 [History Confirmed 11/28/17] Loperamide CAP* [Imodium CAP*] 4 mg PO Q4H PRN MDD 16mg 11/28/17 [History Confirmed 11/28/17] Memantine TAB* [Namenda TAB*] 10 mg PO BID 11/28/17 [History Confirmed 11/28/17] Sertraline* [Zoloft*] 25 mg PO DAILY 11/28/17 [History Confirmed 11/28/17] guaiFENesin LIQ* [Robitussin*] 10 ml PO Q6H PRN 11/28/17 [History Confirmed ] PMH/Surg Hx/FS Hx/Imm Hx Cardiovascular History: Reports: Hx Coronary Artery Disease, Hx Hypercholesterolemia, Hx Hypertension GI History: Reports: Hx Diverticulosis Sensory History: Denies: Hx Deafness Neurological History: Reports: Hx Dementia Psychiatric History: Denies: Hx Eating Disorder, Hx of Violent Episodes Against Others - Cancer History Cancer Type, Location and Year: 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 2005 BOWEL RESECTION - Immunization History Date of Tetanus Vaccine: unk Date of Influenza Vaccine: unk Infectious Disease History: No Infectious Disease History: Denies: Traveled Outside the [place] in Last 30 Days - Family History Known Family History: Positive: Hypertension - Social History Alcohol Use: None Hx Substance Use: No Substance Use Type: Reports: None Hx Tobacco Use: No Smoking Status (MU): Former Smoker Review of Systems Positive: Other - dehydration. Negative: Fever Positive: Vomiting, Diarrhea Musculoskeletal: Negative - pain Neurological: Negative - confusion Positive: Weakness All Other Systems Reviewed And Are Negative: Yes Physical Exam - Summary Physical Exam Summary: Appearance: Well appearing, no pain distress Skin: cool, dry, reflects adequate perfusion Head/face: normal Eyes: EOMI, ARTIE ENT: mucus membranes are tacky Neck: supple, non-tender Respiratory: CTA, breath sounds present Cardiovascular: tachy but regular, pulses symmetrical Abdomen: non-tender, soft, large scar midline, large bilateral ventral hernias that is soft and reducible Bowel Sounds: present and normal Musculoskeletal: normal, strength/ROM intact, no back pain with palpation Neuro: normal, sensory motor intact, A&Ox3 Triage Information Reviewed: Yes Vital Signs On Initial Exam: Initial Vitals Temp Pulse Resp BP Pulse Ox 97.9 F 108 19 141/94 97 11/28/17 14:40 11/28/17 14:40 11/28/17 14:40 11/28/17 14:40 11/28/17 14:40 Vital Signs Reviewed: Yes Diagnostics - Vital Signs Vital Signs Temp Pulse Resp BP Pulse Ox 11/28/17 14:40 97.9 F 108 19 141/94 97 - Laboratory Lab Results: Lab Results 11/28/17 11/28/17 11/28/17 Range/Units 15:30 15:30 15:30 WBC 10.4 (3.5-10.8) 10^3/ul RBC 5.64 H (4.0-5.4) 10^6/ul Hgb 16.2 H (12.0-16.0) g/dl Hct 48 H (35-47) % MCV 85 (80-97) fL MCH 29 (27-31) pg MCHC 34 (31-36) g/dl RDW 14 (10.5-15) % Plt Count 232 (150-450) 10^3/ul MPV 9.2 (7.4-10.4) um3 Neut % (Auto) 71.6 (38-83) % Lymph % (Auto) 17.6 L (25-47) % [place] % (Auto) 9.4 H (0-7) % Eos % (Auto) 0.9 (0-6) % Baso % (Auto) 0.5 (0-2) % Absolute Neuts (auto) 7.5 (1.5-7.7) 10^3/ul Absolute Lymphs (auto) 1.8 (1.0-4.8) 10^3/ul Absolute Monos (auto) 1.0 H (0-0.8) 10^3/ul Absolute Eos (auto) 0.1 (0-0.6) 10^3/ul Absolute Basos (auto) 0.1 (0-0.2) 10^3/ul Absolute Nucleated RBC 0 10^3/ul Nucleated RBC % 0.2 INR (Anticoag Therapy) 1.01 (0.77-1.02) APTT 30.0 (26.0-36.3) seconds Sodium 133 L (139-145) mmol/L Potassium 2.9 L (3.5-5.0) mmol/L Chloride 99 L (101-111) mmol/L Carbon Dioxide 25 (22-32) mmol/L Anion Gap 9 (2-11) mmol/L BUN 34 H (6-24) mg/dL Creatinine 1.23 H (0.51-0.95) mg/dL Est GFR ( Amer) 53.2 (>60) Est GFR (Non-Af Amer) 41.4 (>60) BUN/Creatinine Ratio 27.6 H (8-20) Glucose 117 H (70-100) mg/dL Lactic Acid (0.5-2.0) mmol/L Calcium 8.9 (8.6-10.3) mg/dL Total Bilirubin 0.70 (0.2-1.0) mg/dL AST 24 (13-39) U/L ALT 39 (7-52) U/L Alkaline Phosphatase 114 H (34-104) U/L Troponin I 0.00 (<0.04) ng/mL Total Protein 7.8 (6.4-8.9) g/dL Albumin 3.8 (3.2-5.2) g/dL Globulin 4.0 (2-4) g/dL Albumin/Globulin Ratio 1.0 (1-3) Blood Type Antibody Screen 11/28/17 11/28/17 Range/Units 15:30 15:30 WBC (3.5-10.8) 10^3/ul RBC (4.0-5.4) 10^6/ul Hgb (12.0-16.0) g/dl Hct (35-47) % MCV (80-97) fL MCH (27-31) pg MCHC (31-36) g/dl RDW (10.5-15) % Plt Count (150-450) 10^3/ul MPV (7.4-10.4) um3 Neut % (Auto) (38-83) % Lymph % (Auto) (25-47) % [place] % (Auto) (0-7) % Eos % (Auto) (0-6) % Baso % (Auto) (0-2) % Absolute Neuts (auto) (1.5-7.7) 10^3/ul Absolute Lymphs (auto) (1.0-4.8) 10^3/ul Absolute Monos (auto) (0-0.8) 10^3/ul Absolute Eos (auto) (0-0.6) 10^3/ul Absolute Basos (auto) (0-0.2) 10^3/ul Absolute Nucleated RBC 10^3/ul Nucleated RBC % INR (Anticoag Therapy) (0.77-1.02) APTT (26.0-36.3) seconds Sodium (139-145) mmol/L Potassium (3.5-5.0) mmol/L Chloride (101-111) mmol/L Carbon Dioxide (22-32) mmol/L Anion Gap (2-11) mmol/L BUN (6-24) mg/dL Creatinine (0.51-0.95) mg/dL Est GFR ( Amer) (>60) Est GFR (Non-Af Amer) (>60) BUN/Creatinine Ratio (8-20) Glucose (70-100) mg/dL Lactic Acid 1.7 (0.5-2.0) mmol/L Calcium (8.6-10.3) mg/dL Total Bilirubin (0.2-1.0) mg/dL AST (13-39) U/L ALT (7-52) U/L Alkaline Phosphatase (34-104) U/L Troponin I (<0.04) ng/mL Total Protein (6.4-8.9) g/dL Albumin (3.2-5.2) g/dL Globulin (2-4) g/dL Albumin/Globulin Ratio (1-3) Blood Type O Negative Antibody Screen Negative Result Diagrams: 11/28/17 15:30 11/28/17 15:30 Lab Statement: Any lab studies that have been ordered have been reviewed, and results considered in the medical decision making process. - Radiology CXR Radiology Interpretation Completed By: Radiologist - NO ACTIVE CARDIOPULMONARY DISEASE IS NOTED. ED physician has reviewed this radiology report. - CT CT brain CT Interpretation Completed By: Radiologist - NO ACUTE INTRACRANIAL PATHOLOGY. DIFFUSE INVOLUTIONAL CHANGE WITH CHRONIC SMALL VESSEL ISCHEMIC CHANGES. ED physician has reviewed this radiology report. - EKG 1507 Cardiac Rate: NL EKG Rhythm: Sinus Rhythm - [address] Segment: Non-Specific EKG Interpretation: abnormal axis Re-Evaluation - Re-Evaluation First Eval Re-Evaluation Time: 18:00 Change: Improved - Patient improving. Feeling stronger. Complex Multi-Symp Course/Dx Course Of Treatment: Patient with recent diarrheal illness that has struck the entire nursing facility. She has not been on antibiotics. She has not been able to produce a stool specimen here. She has evidence on laboratories for dehydration and also hypokalemia. Oral potassium, magnesium as well as IV potassium but provided here. She was hydrated as well. She is feeling much improved and discharged back to the nursing facility. - Diagnoses Differential Diagnoses/HQI/PQRI: Other - Diarrheal illness, metabolic abnormality, C. difficile colitis Provider Diagnoses: Diarrhea, Hypokalemia, Dehydration - Critical Care Time Critical Care Time: 30-74 min - Critical care time is exclusive of separately billable procedures Discharge - Sign-Out/Discharge Documenting (check all that apply): Discharge/Admit/Transfer - Discharge Plan Condition: Improved Disposition: [facility] Prescriptions: Magnesium Oxide TAB* [MagOx 400 TAB*] 400 mg PO DAILY #5 tab Potassium Chloride 40 meq PO DAILY 5 Days #1 bottle Patient Education Materials: Dehydration (ED), Hypokalemia (ED), Acute Diarrhea (ED) Referrals: Lorin Perkins MD [Primary Care Provider] - Additional Instructions: Returned to [place]. Recheck potassium in 4-5 days. Keep well-hydrated. Return if worse, new symptoms or other concerns. The patient was not able to provide a stool specimen here. If necessary or desired by the prison physician obtained a specimen for C. difficile testing. - Billing Disposition and Condition Condition: IMPROVED Disposition: SNF The documentation as recorded by the Nicolasa thomas Gabriel accurately reflects the service I personally performed and the decisions made by Nina mendez Kirk, MD.
[2017-11-28 19:44] VITALS: BP 150/74
== END 2017-11-28 19:46 ==
LOC: ED 14:34
DX: E86.0 Dehydration (principal); E87.6 Hypokalemia; R19.7 Diarrhea, unspecified; F03.90 Unspecified dementia, unspecified severity, without behavioral disturbance, psychotic disturbance, mood disturbance, and anxiety; Z86.19 Personal history of other infectious and parasitic diseases; Z79.899 Other long term (current) drug therapy; Z87.891 Personal history of nicotine dependence; Z88.5 Allergy status to narcotic agent; Z91.041 Radiographic dye allergy status
CPT/HCPCS: 36415; 70450; 71045; 80053; 83605; 84484; 85025; 85610; 85730; 86850; 86900; 86901; 87040; 93005; 96360; 96361; 99283; A9270-GY